=== PATIENT | female | born 1970 | race Caucasian/White ===

== ENCOUNTER 2019-09-01 20:08 | Inpatient (IN) ==
[2019-09-01] MEDS ORDERED: LACTATED RINGERS 1,000 ML IV ONE (20:27)
[2019-09-01] MEDS ORDERED: LORazepam 2 MG/ML VIAL IV ONE ×2 (20:27→23:32)
--- NOTE | 2019-09-01 20:29 | Emergency Department Note ---
General Adult HPI - General Chief complaint: Psychiatric Symptoms Stated complaint: confusion Time Seen by Provider: 09/01/19 20:25 Source: EMS Mode of arrival: ambulatory Limitations: no limitations - History of Present Illness HPI Narrative: EMS was called to the patient's home by family because she was acting delirious. She was diagnosed with a UTI yesterday. She cannot give me much of a history right now and is delirious and somewhat acting out violent. She will have to be restrained. - Related Data Home Medications Medication Instructions Recorded Confirmed albuterol sulfate 90 mcg/actuation 90 mcg INHALATION Q4H PRN 03/25/15 08/31/19 aerosol inhaler acetaminophen 325 mg tablet 325 mg PO ONCE PRN tab 04/21/15 08/31/19 ibuprofen 200 mg capsule 200 mg PO QDAY PRN cap 04/21/15 08/31/19 buspirone 7.5 mg tablet 7.5 mg PO QDAY tab 12/31/15 09/01/19 metformin 500 mg tablet 500 mg PO BID 04/11/19 09/01/19 Enbrel 09/01/19 Previous Rx's Medication Instructions Recorded Albuterol Sulfate [Ventolin] 2 puff INH Q4-6HP PRN #1 inhaler 09/14/16 cyclobenzaprine 5 mg tablet See Rx Instructions .ROUTE 05/17/18 .COMPLEX #120 tablet doxycycline hyclate 100 mg tablet 100 mg PO BID #20 tab 04/11/19 baclofen 20 mg tablet 40 mg PO BID #120 tab 07/22/19 etanercept 50 mg/mL (1 mL) See Rx Instructions .ROUTE 07/23/19 subcutaneous pen injector .COMPLEX #4 unknown measurement unit code: not specified cephalexin 500 mg capsule 1,000 mg PO BID #14 cap 08/31/19 ondansetron 4 mg disintegrating 4 mg PO TID-QID PRN #30 tab 08/31/19 tablet Allergies Allergy/AdvReac Type Severity Reaction Status Date / Time Sulfa (Sulfonamide Allergy Unknown Unknown Verified 09/01/19 21:38 Antibiotics) tetanus toxoid, adsorbed Allergy Unknown Unknown Verified 09/01/19 21:38 thimerosal Allergy Unknown Unknown Verified 09/01/19 21:38 nitrofurantoin Allergy Vomiting Verified 09/01/19 21:38 [From Macrobid] INFLUENZA VACCINE Allergy Unknown Unknown Uncoded 08/31/19 15:44 Review of Systems All systems ED: reviewed and negative except as stated. Past Medical History - Past Medical History [facility] Narrative: Medical History (Last Reviewed 08/31/19 @ 16:06 by Marie Danielson PA-C) Polyarthralgia (Acute) Encounter for long-term current use of high risk medication (Acute) Cigarette smoker (Chronic) Long-term use of immunosuppressant medication (Chronic) Rheumatoid arthritis (Acute) Inflammatory arthritis (Chronic) Asthma (Chronic) Obesity (BMI 30.0-34.9) (Chronic) Chronic back pain (Chronic) Fibromyalgia (Acute) Elevated blood pressure (Chronic) Allergic rhinitis (Chronic) Right shoulder pain (Chronic) Right hip pain (Chronic) Cystitis (Resolved) Elevated C-reactive protein (Resolved) Muscle spasm (Resolved) Trochanteric bursitis, right hip (Resolved) UTI (urinary tract infection) (Resolved) Arthralgia of multiple joints (Inactive) Family History (Last Reviewed 08/31/19 @ 16:06 by Marie Danielson PA-C) Brother Diabetes mellitus, type 2 Father Diabetes mellitus, type 2 Valvular heart disease Father No problems noted. Sister Heart disease Medical history: Reports: asthma, COPD, hypertension, obesity, other. Denies: CAD (coronary artery disease), CVA, DVT, DM, hypothyroidism, myocardial infarction, pulmonary embolus, TIA Psychiatric history: Reports: anxiety. 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 Surgical history ED: Reports: orthopedic, other (Several toe surgeries and hammertoe repair.), other (5 ectopic pregnancies.) - Social History smoking status: Current every day smoker Alcohol use: Reports: None Drug use: Reports: none, marijuana (Topical) Physical Exam Limitations: no limitations General appearance: anxious, appears intoxicated Head: atraumatic, normocephalic Eye: Present: conjunctival injection ENT: Present: normal exam Neck: Present: normal inspection Chest: Present: normal inspection Respiratory: Present: normal lung sounds bilaterally Cardiovascular: Present: regular rate, normal rhythm, normal heart sounds Abdominal: Present: soft. Absent: distention, tenderness Course Vital Signs Temperature 98.0 F 09/01/19 20:10 Pulse Rate 132 H 09/01/19 20:10 Respiratory Rate 24 H 09/01/19 20:10 Blood Pressure 180/110 09/01/19 20:10 Pulse Oximetry (%) 97 09/01/19 20:10 Temperature 100.7 F H 09/02/19 04:16 Pulse Rate 122 H 09/02/19 04:16 Respiratory Rate 28 H 09/02/19 04:16 Blood Pressure 100/72 09/02/19 04:16 Pulse Oximetry (%) 97 09/02/19 04:16 Medical Decision Making - MDM Narrative Medical decision making narrative: Lab work was consistent with sepsis and CT scan was suggestive of pyelonephritis bilaterally with left worse than right. This patient continued to act out and required restraints and Ativan as well as some Haldol to keep her controlled. We did do cultures and gave her Levaquin Zosyn and vancomycin. She will be admitted to the ICU by Dr. Johnosn. - Lab Data Lab results reviewed: Yes I reviewed the patient's lab results. Result diagrams: 09/01/19 20:32 09/01/19 20:32 Lab Results 09/01/19 09/01/19 09/01/19 Range/Units 20:32 20:32 20:32 WBC 22.9 H (4.50-11.00) K/mcL RBC 5.18 (3.59-5.38) M/mcL Hgb 16.0 H (11.2-15.7) g/dL Hct 46.0 H (34.1-44.9) % MCV 88.8 (80.0-100.0) fL MCH 30.9 (26.0-34.0) pg MCHC 34.8 (31.0-36.0) g/dL RDW 13.2 (11.5-14.5) % Plt Count 302 (140-440) K/mcL MPV 10.3 (7.4-10.4) fL Gran % 87.3 H (38.0-78.0) % Lymph % (Auto) 5.5 L (15.5-49.0) % Alexander % (Auto) 6.9 (1.0-12.0) % Eos % (Auto) 0 (0.0-7.0) % Baso % (Auto) 0.3 (0.0-2.0) % Gran # 19.97 H (1.80-8.00) K/mcL Lymph # (Auto) 1.26 L (1.50-4.80) K/mcL Alexander # (Auto) 1.57 H (0.10-0.90) K/mcL Eos # (Auto) 0.01 (0.00-0.70) K/mcL Baso # (Auto) 0.06 (0.00-0.30) K/mcL Differential Comment VBG Lactic Acid 3.4 H (0.5-2.0) mmol/L Sodium 135 (133-145) mmol/L Potassium 3.7 (3.3-5.1) mmol/L Chloride 95 L (96-108) mmol/L Carbon Dioxide 20 L (22-30) mmol/L Anion Gap 20.0 H (8-16) BUN 34 H (6-20) mg/dl Creatinine 2.0 H (0.6-1.1) mg/dl GFR Calculation 29 Glucose 114 H (70-105) mg/dL Calcium 9.5 (8.6-10.4) mg/dl Total Bilirubin 0.3 (0.0-1.0) mg/dL AST 46 H (0-37) U/l ALT 49 H (0-40) U/l Alkaline Phosphatase 137 H (39-117) U/L Total Protein 7.4 (5.9-8.4) gm/dL Albumin 3.8 (3.2-5.2) gm/dL Globulin 3.6 (2.2-3.7) gm/dL Albumin/Globulin Ratio 1.1 (1.0-2.3) Urine Color Urine Appearance Urine pH (5.0-9.0) Ur Specific Irving (1.000-1.035) Urine Protein (NEG) mg/dL Urine Glucose (UA) (NEG) mg/dL Urine Ketones (NEG) mg/dL Urine Occult Blood (<0.03) mg/dL Urine Nitrate (NEG) Urine Bilirubin (NEG) mg/dL Urine Urobilinogen (NEG) mg/dL Ur Leukocyte Esterase (NEG) /uL Urine RBC (0-1) /hpf Urine WBC (0-4) /hpf Ur Squamous Epith Cells (0-4) /hpf Amorphous Crystals (0) /hpf Urine Bacteria (0) /hpf Hyaline Casts (0-2) /lpf Urine Mucus (0) /hpf Ur Culture Indicated? Urine Opiates Screen (NONDETECTED) Ur Opiates Confirm Ur Oxycodone Screen (NONDETECTED) Urine Methadone Screen (NONDETECTED) Ur Methadone Confirm Ur Barbiturates Screen (NONDETECTED) Ur Barbiturate Confirm Ur Phencyclidine Scrn (NONDETECTED) Urine PCP Confirm Ur Amphetamines Screen (NONDETECTED) U Amphetamines Confirm U Benzodiazepines Scrn (NONDETECTED) U Benzodiazepine Confm Urine Cocaine Screen (NONDETECTED) Urine Cocaine Confirm U Cannabinoids Confirm U Marijuana (THC) Screen (NONDETECTED) 09/01/19 09/01/19 Range/Units 21:25 21:25 WBC (4.50-11.00) K/mcL RBC (3.59-5.38) M/mcL Hgb (11.2-15.7) g/dL Hct (34.1-44.9) % MCV (80.0-100.0) fL MCH (26.0-34.0) pg MCHC (31.0-36.0) g/dL RDW (11.5-14.5) % Plt Count (140-440) K/mcL MPV (7.4-10.4) fL Gran % (38.0-78.0) % Lymph % (Auto) (15.5-49.0) % Alexander % (Auto) (1.0-12.0) % Eos % (Auto) (0.0-7.0) % Baso % (Auto) (0.0-2.0) % Gran # (1.80-8.00) K/mcL Lymph # (Auto) (1.50-4.80) K/mcL Alexander # (Auto) (0.10-0.90) K/mcL Eos # (Auto) (0.00-0.70) K/mcL Baso # (Auto) (0.00-0.30) K/mcL Differential Comment VBG Lactic Acid (0.5-2.0) mmol/L Sodium (133-145) mmol/L Potassium (3.3-5.1) mmol/L Chloride (96-108) mmol/L Carbon Dioxide (22-30) mmol/L Anion Gap (8-16) BUN (6-20) mg/dl Creatinine (0.6-1.1) mg/dl GFR Calculation Glucose (70-105) mg/dL Calcium (8.6-10.4) mg/dl Total Bilirubin (0.0-1.0) mg/dL AST (0-37) U/l ALT (0-40) U/l Alkaline Phosphatase (39-117) U/L Total Protein (5.9-8.4) gm/dL Albumin (3.2-5.2) gm/dL Globulin (2.2-3.7) gm/dL Albumin/Globulin Ratio (1.0-2.3) Urine Color Yellow Urine Appearance Cloudy Urine pH 5.0 (5.0-9.0) Ur Specific Irving 1.020 (1.000-1.035) Urine Protein 100 A (NEG) mg/dL Urine Glucose (UA) Negative (NEG) mg/dL Urine Ketones 5/tr A (NEG) mg/dL Urine Occult Blood >=1.0 A (<0.03) mg/dL Urine Nitrate Neg (NEG) Urine Bilirubin Neg (NEG) mg/dL Urine Urobilinogen Neg (NEG) mg/dL Ur Leukocyte Esterase 25 A (NEG) /uL Urine RBC 177 H (0-1) /hpf Urine WBC 28 H (0-4) /hpf Ur Squamous Epith Cells 0 (0-4) /hpf Amorphous Crystals Few A (0) /hpf Urine Bacteria 0 (0) /hpf Hyaline Casts 12 H (0-2) /lpf Urine Mucus Few (0) /hpf Ur Culture Indicated? Yes Urine Opiates Screen None detected (NONDETECTED) Ur Opiates Confirm Not Reportable Ur Oxycodone Screen None detected (NONDETECTED) Urine Methadone Screen None detected (NONDETECTED) Ur Methadone Confirm Not Reportable Ur Barbiturates Screen None detected (NONDETECTED) Ur Barbiturate Confirm Not Reportable Ur Phencyclidine Scrn None detected (NONDETECTED) Urine PCP Confirm Not Reportable Ur Amphetamines Screen None detected (NONDETECTED) U Amphetamines Confirm Not Reportable U Benzodiazepines Scrn None detected (NONDETECTED) U Benzodiazepine Confm Not Reportable Urine Cocaine Screen None detected (NONDETECTED) Urine Cocaine Confirm Not Reportable U Cannabinoids Confirm Not Reportable U Marijuana (THC) Screen Suspect positive A (NONDETECTED) - Radiology Data Radiology results reviewed: Yes I reviewed the patient's radiology results. Disposition Pt seen by BUSINESS IMPROVEMENT MANAGER/PA only: No Clinical Impression: Pyelonephritis Disposition: Xfer As Inpt ([facility]) Condition: Fair Referrals: No,PCP [Primary Care Provider] - Time of Disposition: 06:33
[2019-09-01 21:21] LABS: Basophils # (Auto) 0.06 K/mcL (0.00-0.30); Basophils % (Auto) 0.3 % (0.0-2.0); Eosinophils # (Auto) 0.01 K/mcL (0.00-0.70); Eosinophils % (Auto) 0 % (0.0-7.0); Granulocytes % (Auto) 87.3 % (38.0-78.0); Lymphocytes # (Auto) 1.26 K/mcL (1.50-4.80); Lymphocytes % (Auto) 5.5 % (15.5-49.0); Mean Cell Volume 88.8 fL (80.0-100.0); Mean Corpuscular HGB Conc 34.8 g/dL (31.0-36.0); Mean Platelet Volume 10.3 fL (7.4-10.4); Monocytes # (Auto) 1.57 K/mcL (0.10-0.90); Monocytes % (Auto) 6.9 % (1.0-12.0); Platelet Count 302 K/mcL (140-440); RBC 5.18 M/mcL (3.59-5.38); Red Cell Distribution Width 13.2 % (11.5-14.5); WBC 22.9 K/mcL (4.50-11.00)
[2019-09-01] MEDS ORDERED: LEVOFLOXACIN 750 MG/150 ML BAG IV ONE (21:27)
[2019-09-01 21:30] LABS: ALT/SGPT 49 U/l (0-40); AST/SGOT 46 U/l (0-37); Albumin 3.8 gm/dL (3.2-5.2); Albumin/Globulin Ratio 1.1 (1.0-2.3); Alkaline Phosphatase 137 U/L (39-117); Bilirubin,Total 0.3 mg/dL (0.0-1.0); Blood Urea Nitrogen 34 mg/dl (6-20); Calcium 9.5 mg/dl (8.6-10.4); Carbon Dioxide 20 mmol/L (22-30); Globulin 3.6 gm/dL (2.2-3.7); Glomerular Filtration Rate 29; Glucose 114 mg/dL (70-105)
[2019-09-01 21:32] LABS: Chloride 95 mmol/L (96-108)
[2019-09-01] MEDS ORDERED: 0.9 % SODIUM CHLORIDE 1,000 ML IV ONE (21:55)
[2019-09-01 22:06] LABS: Amphetamine Screen,Urine NONE DETECTED (NONDETECTED); Barbiturate Screen,Urine NONE DETECTED (NONDETECTED); Benzodiazepines Screen,Urine NONE DETECTED (NONDETECTED); Cannabinoid Screen,Urine SUSPECT POSITIVE (NONDETECTED); Cocaine Screen,Urine NONE DETECTED (NONDETECTED); Opiate Screen,Urine NONE DETECTED (NONDETECTED); Oxycodone, Urine Screen NONE DETECTED (NONDETECTED); Phencyclidine Screen,Urine NONE DETECTED (NONDETECTED)
[2019-09-01 22:30] LABS: Appearance,Urine CLOUDY; Bacteria,Urine 0 /hpf (0); Bilirubin,Urine NEG (NEG); Color,Urine YELLOW; Culture Indicated,Urine YES; Glucose,Urine (UA) NEGATIVE (NEG); Ketones,Urine 5/TR mg/dL (NEG); Leukocyte Esterase,Urine 25 /uL (NEG); Mucus,Urine FEW /hpf (0); Nitrate,Urine NEG (NEG); Protein,Urine 100 mg/dL (NEG); Urine Amorphous Crystals FEW /hpf (0); Urine Blood >=1.0 mg/dL (<0.03); Urine Hyaline Cast 12 /lpf (0-2); Urine RBC 177 /hpf (0-1); Urine Squamous Epithelial Cell 0 /hpf (0-4); Urine WBC 28 /hpf (0-4); Urobilinogen,Urine NEG (NEG)
[2019-09-01] MEDS ORDERED: 0.9 % SODIUM CHLORIDE 1,000 ML IV SCH (23:00)
[2019-09-02] MEDS: LORazepam 2 MG/ML VIAL IV PRN ×3 (01:16→05:55)
[2019-09-02] MEDS ORDERED: ACETAMINOPHEN 650 MG SUPP.RECT PR ONE (01:43)
[2019-09-02] MEDS ORDERED: fentaNYL 100 MCG/2 ML VIAL IV ONE ×4 (01:49→10:20)
[2019-09-02] MEDS ORDERED: HALOPERIDOL LACTATE 5 MG/ML VIAL IM ONE (02:05)
[2019-09-02] MEDS ORDERED: VANCOMYCIN 1,000 MG in 0.9 % SODIUM CHLORIDE 250 ML IV ONE (02:29)
[2019-09-02] MEDS ORDERED: PIPERACILLIN SODIUM/TAZOBACTAM 3.375 GM in DEXTROSE 5% IN WATER 50 ML IV ONE (02:29)
[2019-09-02] MEDS ORDERED: LORazepam 2 MG/ML VIAL IV ONE (03:44)
[2019-09-02] MEDS ORDERED: LACTATED RINGERS 1,000 ML IV SCH (05:00)
--- NOTE | 2019-09-02 07:12 | Internal Med History&Physical ---
Medical - H&P: [facility] Patient information: Note initiated : 09/02/19 at 7:10 am Service Date, if different from initiated Date: [] Patient: Sun Cohn a 49 y/o F admitted on 09/02/19 for confusion. Chief Complaint: [] Chief complaint: Acting confused History of present illness: Ms. Cohn is a 49 year old F with known history of DM type II, inflammatory polyarthritis on Enbrel and Etanercept managed by fire pilot. She was brought into the ER by her family after she was noted to be increasingly confused and violent along with fever and lower abdominal/back pain. Symptoms started roughly day and a half prior to presentation and has worsened concerning family. Initial work-up in the ER was consistent with severe sepsis with endorgan dysfunction including her acute renal failure/white count 23,000 with bandemia/elevated lactate/tachycardia, tachypnea and fever. Patient was promptly started antibiotics after cultures were drawn. COVID-19 test was performed. Due to patient's extremely anxious and agitated state she was administered 10 mg Haldol. Hospital service was consulted At the time of evaluation no family members are present. Patient is under the effect of antipsychotic unable to provide any history. GCS 6. Most of the history is obtained from review of medical records and from ER physician. Patient remains tachycardic tachypneic and requiring 2 L oxygen. Lowery started draining clear urine. Review of systems Attempted but could not performed. Medical - H&P: H Medical history: Polyarthralgia (Acute) Encounter for long-term current use of high risk medication (Acute) Cigarette smoker (Chronic) Long-term use of immunosuppressant medication (Chronic) Rheumatoid arthritis (Acute) Inflammatory arthritis (Chronic) Asthma (Chronic) Obesity (BMI 30.0-34.9) (Chronic) Chronic back pain (Chronic) Fibromyalgia (Acute) Elevated blood pressure (Chronic) Allergic rhinitis (Chronic) Right shoulder pain (Chronic) Right hip pain (Chronic) Cystitis (Resolved) Elevated C-reactive protein (Resolved) Muscle spasm (Resolved) Trochanteric bursitis, right hip (Resolved) UTI (urinary tract infection) (Resolved) Arthralgia of multiple joints (Inactive) Family History Brother Diabetes mellitus, type 2 Father Diabetes mellitus, type 2 Valvular heart disease Father No problems noted. Sister Heart disease Social History household members: spouse marital status: smoking status: Current every day smoker tobacco type: cigarettes per day: 20 alcohol intake frequency: holiday/special occasion only substance use type: does not use Medical - H&P: Meds Home Medications Medication Instructions Recorded Confirmed Type albuterol sulfate 90 mcg/actuation 90 mcg INHALATION Q4H PRN 03/25/15 08/31/19 History aerosol inhaler acetaminophen 325 mg tablet 325 mg PO ONCE PRN tab 04/21/15 08/31/19 History ibuprofen 200 mg capsule 200 mg PO QDAY PRN cap 04/21/15 08/31/19 History buspirone 7.5 mg tablet 7.5 mg PO QDAY tab 12/31/15 09/01/19 History Albuterol Sulfate [Ventolin] 2 puff INH Q4-6HP PRN #1 inhaler 09/14/16 09/01/19 Rx cyclobenzaprine 5 mg tablet See Rx Instructions .ROUTE 05/17/18 09/01/19 Rx .COMPLEX #120 tablet doxycycline hyclate 100 mg tablet 100 mg PO BID #20 tab 04/11/19 08/31/19 Rx metformin 500 mg tablet 500 mg PO BID 04/11/19 09/02/19 History baclofen 20 mg tablet 40 mg PO BID #120 tab 07/22/19 09/02/19 Rx etanercept 50 mg/mL (1 mL) See Rx Instructions .ROUTE 07/23/19 08/31/19 Rx subcutaneous pen injector .COMPLEX #4 unknown measurement unit code: not specified cephalexin 500 mg capsule 1,000 mg PO BID #14 cap 08/31/19 09/01/19 Rx ondansetron 4 mg disintegrating 4 mg PO TID-QID PRN #30 tab 08/31/19 09/01/19 Rx tablet Enbrel 09/01/19 History Acyclovir [Zovirax] 800 mg PO DAILY 09/02/19 09/02/19 History Cephalexin [Keflex] 250 mg PO BID 09/02/19 09/02/19 History Lisinopril [Zestril] 1 tab PO DAILY 09/02/19 09/02/19 History Meloxicam [Mobic] 7.5 mg PO BID PRN 09/02/19 09/02/19 History Pravastatin [Pravachol] 1 tab PO QHS 09/02/19 09/02/19 History Allergies Allergy/AdvReac Type Severity Reaction Status Date / Time Sulfa (Sulfonamide Allergy Unknown Unknown Verified 09/01/19 21:38 Antibiotics) tetanus toxoid, adsorbed Allergy Unknown Unknown Verified 09/01/19 21:38 thimerosal Allergy Unknown Unknown Verified 09/01/19 21:38 nitrofurantoin AdvReac Mild Vomiting Verified 09/02/19 08:17 [From Macrobid] INFLUENZA VACCINE Allergy Unknown Unknown Uncoded 08/31/19 15:44 Medical - H&P: Exam - Constitutional Vitals: Temp Pulse Resp BP Pulse Ox 99.5 F H 120 H 30 H 103/72 96 09/02/19 06:47 09/02/19 06:47 09/02/19 06:47 09/02/19 06:46 09/02/19 06:47 General appearance: moderate distress (Agitated confused) Exam: Head normocephalic Oral cavity dry No ear nose discharge Eye movements no nystagmus symmetric Neck no lymphadenopathy S1-S2 tachycardia Tachypnea noted Abdomen soft nontender lower extremity no cyanosis clubbing rash or joint swelling Skin no suspicious lesion psych delirious agitated Neuro could not be performed, GCS 6 Medical - H&P: Reslt - Labs CBC & Chem 7: 09/01/19 20:32 09/01/19 20:32 Labs: Short CBC 09/01/19 Range/Units 20:32 WBC 22.9 H (4.50-11.00) K/mcL Hgb 16.0 H (11.2-15.7) g/dL Hct 46.0 H (34.1-44.9) % Plt Count 302 (140-440) K/mcL BMP 09/01/19 20:32 Sodium 135 Potassium 3.7 Chloride 95 L Carbon Dioxide 20 L BUN 34 H Creatinine 2.0 H Glucose 114 H Calcium 9.5 Liver Function 09/01/19 Range/Units 20:32 Total Bilirubin 0.3 (0.0-1.0) mg/dL AST 46 H (0-37) U/l ALT 49 H (0-40) U/l Alkaline Phosphatase 137 H (39-117) U/L Albumin 3.8 (3.2-5.2) gm/dL Urine 09/01/19 Range/Units 21:25 Urine Color Yellow Urine Appearance Cloudy Urine pH 5.0 (5.0-9.0) Ur Specific Bode[place] 1.020 (1.000-1.035) Urine Protein 100 A (NEG) mg/dL Urine Glucose (UA) Negative (NEG) mg/dL Medical - H&P: A/P (1) Severe sepsis Current visit: Yes Status: Acute * Severe sepsis secondary to bilateral pyelonephritis. White count 23,000. Multiple endorgan dysfunction including acute change mental status/acute kidney injury/elevated. Start pressors if systolics downtrending * Bilateral pyonephritis-initiate broad antibiotic coverage. De-escalate based on sensitivities * Acute renal failure with creatinine 2, baseline 0.8. * Acute change in mental status-likely sepsis endorgan dysfunction however rule out encephalitis. Check CSF studies. ID consult. Start acyclovir renal dosing. Intubate if concerns for airway protection * Hypoxic respiratory failure-continue supplemental oxygen. Endorgan dysfunction. Intubate if concern for airway protection * Elevated LFTs with endorgan dysfunction * History immunocompromise state on Enbrel/ Etanercept for underlying inflammatory polyarthritis. * DM type II * Full code * Prophylaxis heparin Plan * ICU admission light of Cache 2 score 18 and multiorgan dysfunction very high risk mortality. * Broad antibiotic coverage * Acyclovir renal dosing * As needed antipsychotics * Vasopressors if indicated * Nephrology consult * ID consult * Lumbar puncture Critical care time spent in excess of 120 minutes in addition to time spent on history and physical.
[2019-09-02] MEDS ORDERED: OLANZapine 10 MG VIAL IM SCH (07:38)
[2019-09-02] MEDS ORDERED: MELATONIN 3 MG TABLET PO PRN (07:38)
[2019-09-02] MEDS ORDERED: VANCOMYCIN PER PHARMACY IV SCH (07:38)
[2019-09-02] MEDS ORDERED: DEXTROSE 31 GM ORAL.SUSP PO PRN (07:38)
[2019-09-02] MEDS ORDERED: DEXTROSE 50% 50 ML VIAL IV PRN (07:38)
[2019-09-02] MEDS ORDERED: POLYETHYLENE GLYCOL 3350 17 GM PACKET PO PRN (07:38)
[2019-09-02] MEDS ORDERED: ONDANSETRON 4 MG/2 ML VIAL IV PRN (07:38)
[2019-09-02] MEDS ORDERED: POTASSIUM CHLORIDE 40 MEQ in DEXTROSE 5% IN WATER 500 ML IV PRN (07:38)
[2019-09-02] MEDS ORDERED: MAGNESIUM SULFATE 2 GM/50 ML BAG IV PRN (07:38)
[2019-09-02] MEDS ORDERED: ALBUTEROL SULFATE 200 PUFF INHALER INH PRN (07:38)
[2019-09-02] MEDS ORDERED: ACETAMINOPHEN 325 MG TABLET PO PRN (07:38)
[2019-09-02] MEDS ORDERED: ONDANSETRON 4 MG ODT TABLET SL PRN (07:38)
[2019-09-02] MEDS ORDERED: OLANZapine 5 MG TABLET PO PRN (07:38)
[2019-09-02] MEDS ORDERED: POTASSIUM CHLORIDE 20 MEQ PACKET PO PRN (07:38)
[2019-09-02] MEDS ORDERED: BISACODYL 10 MG SUPP.RECT PR PRN (07:38)
[2019-09-02] MEDS: INSULIN LISPRO 1 UNIT/0.01 ML UNIT SQ SCH ×3 (08:05→18:01)
[2019-09-02] MEDS: LACTATED RINGERS 1,000 ML IV SCH ×2 (08:05→20:21)
[2019-09-02] MEDS ORDERED: LACTATED RINGERS 1,000 ML IV ONE (08:17)
[2019-09-02] MEDS ORDERED: IPRATROPIUM/ALBUTEROL SULFATE 1 PUFF INHALER INH SCH (09:00)
--- NOTE | 2019-09-02 09:00 | Cat Scan Report ---
CLINICAL INFORMATION: Altered mental status COMPARISON: None. TECHNIQUE: 2.5 mm helical slices were obtained in the skull base to vertex. Following reconstruction, axial reformatted images were reviewed at bone and parenchymal windows. The exam was performed using radiation dose optimization techniques including, but not limited to, automated exposure control, adjustment of the mA and/or kV according to patient size and use of iterative reconstruction technique. FINDINGS: The ventricles, sulci, fissures, and cisterns are normal in size and configuration. No extra-axial fluid collections are identified. The cerebrum, brainstem and cerebellum are unremarkable. There is no evidence of hemorrhage, mass effect, or edema. Bone windows show no osseous abnormality. IMPRESSION: Normal head CT without contrast. Interpreted and Authenticated by: Prakash Vizcarra 09/02/19
[2019-09-02] MEDS: DEXMEDETOMIDINE 400 MCG in PREMIX 1 BAG IV SCH (09:50)
[2019-09-02] MEDS ORDERED: MIDAZOLAM 2 MG/2 ML VIAL IV STA (09:59)
[2019-09-02] MEDS ORDERED: MIDAZOLAM 2 MG/2 ML VIAL ONE ×2 (10:00→10:18)
[2019-09-02] MEDS ORDERED: VANCOMYCIN 500 MG in 0.9 % SODIUM CHLORIDE 100 ML IV SCH (10:00)
[2019-09-02] MEDS ORDERED: MIDAZOLAM 2 MG/2 ML VIAL IV ONE ×2 (10:14→10:18)
[2019-09-02] MEDS ORDERED: HEPARIN/NS 500 ML IV SCH (10:15)
[2019-09-02] MEDS ORDERED: PROPOFOL 100 ML IV SCH (10:15)
[2019-09-02] MEDS ORDERED: ACYCLOVIR SODIUM 500 MG VIAL IV SCH (10:15)
[2019-09-02] MEDS: fentaNYL 100 MCG/2 ML VIAL IV ONE ×2 (10:21→10:30)
[2019-09-02] MEDS ORDERED: KETAMINE 10 MG/ML ML IV ONE (10:35)
[2019-09-02] MEDS: CYANOCOBALAMIN (VITAMIN B-12) 500 MCG TABLET PO SCH ×2 (10:37→20:22)
[2019-09-02] MEDS: busPIRone 15 MG TABLET PO SCH (10:37)
[2019-09-02] MEDS: sitaGLIPtin 100 MG TABLET PO SCH (10:37)
[2019-09-02] MEDS: TIOTROPIUM BROMIDE 18 MCG INHALANT INH SCH (10:37)
[2019-09-02] MEDS: THIAMINE 100 MG TABLET PO SCH (10:37)
[2019-09-02] MEDS: MULTIVIT,THER IRON,CA,FA & MIN 1 TABLET PO SCH (10:37)
[2019-09-02] MEDS: FOLIC ACID 1 MG TABLET PO SCH (10:37)
[2019-09-02] MEDS: BACLOFEN 10 MG TABLET PO SCH ×2 (10:37→20:22)
[2019-09-02] MEDS: DOCUSATE SODIUM 100 MG CAPSULE PO SCH ×2 (10:37→20:22)
[2019-09-02] MEDS ORDERED: PROPOFOL 200 MG/20 ML VIAL IV ONE (10:37)
[2019-09-02] MEDS ORDERED: ROCURONIUM 10 MG/ML ML IV ONE (10:37)
--- NOTE | 2019-09-02 10:48 | Cat Scan Report ---
CLINICAL INFORMATION: Sepsis COMPARISON: Abdomen and pelvic CT TECHNIQUE: Enteric and IV contrast were withheld by referring physician. 0.625 mm helical slices were obtained from the lung apices through the subtrochanteric regions of the femurs. Following reconstruction, 2.5 mm sagittal, coronal and axial reformatted images were processed and reviewed at multiple windows and levels. 7 mm MIP reconstructions were obtained through the lungs to optimize nodule detection.The exam was performed using radiation dose optimization techniques including, but not limited to, automated exposure control, adjustment of the mA and/or kV according to patient size and use of iterative reconstruction technique. FINDINGS: Pulmonary parenchymal windows show scattered small nodules: The largest is 10.5 mm in the anterior segment left upper lobe, image 42. Other nodules include 3.4 mm adjacent to the minor fissure and the right middle lobe on image 57, 5.5 mm in the lateral basilar segment of the left lower lobe image 69, 4.7 mm lateral segment right middle lobe image 5 mm millimeter lateral basilar segment right lower lobe on image 76. There is also vague groundglass airspace disease throughout the dependent lungs most likely atelectasis. No definite infiltrate. The pleural spaces are normal. The mediastinal windows show the is normal in size configuration without calcific plaque in the coronary arteries. The noncontrasted thoracic aorta and pulmonary arteries are normal in contour and caliber. There is no adenopathy in the mediastinal hilar or axillary regions. Esophagus is grossly normal. The thyroid is unremarkable. Abdominal images show the noncontrast gallbladder and bile ducts, liver, left adrenal gland, spleen, pancreas and aorta and the normal in size configuration and attenuation without focal lesion. An 18 mm low-attenuation well-circumscribed nodule, in the right adrenal gland should represent a benign adenoma and is unchanged. The left kidney is mildly enlarged with inhomogeneous attenuation and perinephric inflammation suggesting diffuse nephritis. Similar, although more mild, findings seen in the right kidney. There is no free air, free fluid or adenopathy. Pelvic images show a Lowery catheter within the urinary bladder base with latter decompression no gross bladder abnormality. 6.4 cm well-defined low-attenuation lesion in the anterior uterine fundus which was not seen on CT less than one year ago. Uterus otherwise normal. Both ovaries are unremarkable. Scattered sigmoid diverticuli noted but no evidence of diverticulitis. The remaining colon and appendix, small bowel and stomach are normal. The bone windows show mild widening of the left L4-5 facet indicates atypical degeneration or less likely inflammatory arthritis. Assess progress from previous study. At C6-7 moderate broad disc spur complex results in moderate central canal, severe left and mild right lateral recess /IV foraminal narrowing with impingement of the exiting left C7 nerve root. No focal osseous abnormalities throughout the chest abdomen or pelvis. IMPRESSION: 1. Mildly enlarged inhomogeneous left kidney with perinephric inflammation suggesting pyelonephritis. Similar, yet more mild changes, seen in the right kidney. Consider unilateral pyelonephritis or bilateral nephritis - more severe on the left. 2. 6.4 cm well-circumscribed low-attenuation lesion in the anterior uterine fundal myometrium - not seen on abdomen and pelvic CT just nine months prior. Rapid growth is a congenital for a benign fibroid. Suggest pelvic ultrasound. 3. Scattered pulmonary nodules which are likely benign. Suggest six month follow-up chest CT to ensure stability or involution. 4. 18 mm low-attenuation lesion right adrenal gland stable bowel benign adenoma. Interpreted and Authenticated by: Prakash Vizcarra 09/02/19
[2019-09-02] MEDS: PROPOFOL 1,000 MG in PREMIX 1 BAG IV SCH ×3 (10:57→23:30)
[2019-09-02] MEDS: ACETAMINOPHEN 650 MG/65 ML BOTTLE IV PRN (10:58)
--- NOTE | 2019-09-02 11:26 | XRay Report ---
CLINICAL INFORMATION: ETT Placement COMPARISON: 09/14/2016 FINDINGS: Endotracheal tube is 3 cm above the harlan. Cardiomediastinal silhouette and pulmonary vessels are normal. Moderate patchy left upper and right lower lung infiltrates have developed. No effusion IMPRESSION: Moderate patchy left upper and right lower lung infiltrates - new Endotracheal tip 3 cm above the harlan Moderate patchy left upper and Interpreted and Authenticated by: Prakash Vizcarra 09/02/19
[2019-09-02] MEDS: ACYCLOVIR SODIUM 800 MG in 0.9 % SODIUM CHLORIDE 250 ML IV SCH ×2 (11:39→23:10)
[2019-09-02] MEDS: fentaNYL 2,500 MCG in 0.9 % SODIUM CHLORIDE 200 ML IV SCH (11:39)
[2019-09-02] MEDS ORDERED: PIPERACILLIN SODIUM/TAZOBACTAM 3.375 GM in DEXTROSE 5% IN WATER 50 ML IV SCH (12:00)
[2019-09-02] MEDS ORDERED: PIPERACILLIN SODIUM/TAZOBACTAM 2.25 GM in DEXTROSE 5% IN WATER 50 ML IV SCH (12:00)
--- NOTE | 2019-09-02 12:34 | Internal Med Progress Note ---
Medical - PN: Subj Patient information: Note initiated : 09/02/19 at 12:30 pm Service Date, if different from initiated Date: [] Patient: Sun Cohn a 49 y/o F admitted on 09/02/19 for confusion. Chief Complaint: [] Interval history: Ms. 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 She was brought into the ER by her family after she was noted to be increasingly confused and violent along with fever and lower abdominal/back pain. Symptoms started roughly day and a half prior to presentation and has worsened concerning family. Initial work-up in the ER was consistent with severe sepsis with endorgan dysfunction including her acute renal failure/white count 23,000 with bandemia/elevated lactate/tachycardia, tachypnea and fever. Patient was promptly started antibiotics after cultures were drawn. COVID-19 test was performed. Due to patient's extremely anxious and agitated state she was administered 10 mg Haldol. Hospitalist service was consulted At the time of evaluation no family members are present. Patient is under the effect of antipsychotic unable to provide any history. GCS 6. Most of the his tory is obtained from review of medical records and from ER physician. Patient remains tachycardic tachypneic and requiring 2 L oxygen. Lowery started draining clear urine. Addendum Shortly after admission patient became extremely encephalopathic with fever at 104. High risk airway compromise and subsequently patient was intubated. Initiated on mechanical ventilation per protocol. Central line access secured. Lumbar puncture ordered. ID consulted and recommends acyclovir. Case discussed with patient's HOME on phone. Consented and agreeable to all procedures involved including life-saving measures/ventilation/central line/lumbar puncture. (He was able to provide a detailed history. they have been trying to maintain social distancing have been in a camper for 6 weeks unti l 8 days ago they returned home. Patient was in her baseline state of health until roughly 3 days prior to presentation started experiencing severe nausea followed by vomiting. Symptoms associated with fever, shaking chills and sweats along with lower back and flank pain. With worsening symptoms she presented to the [facility] care where she was started on antibiotic and antiemetics. She was discharged with outpatient antibiotics. Patient however was unable to take antibiotics until yesterday. She only had 1 dose of antibiotic however she became increasingly fatigued confused lethargic and not making sense prompting her to bring to the ER the second time.) Repeat ABGs reviewed pre-intubation/post intubation. On propofol/fentanyl for ICU sedation. Gram-negative bacteremia resulted blood cultures. Venous lactic acid 4.8. Interval chest imaging pending. Patient remains high risk mortality. ID and nephrology on board. - Constitutional Vitals: Vital Signs Temp Pulse Resp BP Pulse Ox 102.8 F H 119 H 18 116/70 100 09/02/19 10:58 09/02/19 08:06 09/02/19 11:46 09/02/19 08:06 09/02/19 11:46 Period Temp Pulse Resp BP Sys/Benitez Pulse Ox Last 24 Hr 95.5 F-102.8 F 111-136 0-35 100-180/60-110 90-100 Intake and Output 09/01/19 09/02/19 09/02/19 21:59 05:59 13:59 Intake Total 3450 8 Output Total 1850 275 Balance 1600 -267 Weight 200 lb 219 lb Intake & Output: Intake & Output 09/01/19 09/02/19 09/02/19 21:59 05:59 13:59 Intake Total 3450 8 Output Total 1850 275 Balance 1600 -267 Weight 200 lb 219 lb Intake: IV 3450 8 Sodium Chloride 0.9% 1,000 ml @ 2000 45 mls/hr IV .[id number] [facility] Rx#: [id number] Precedex 400 Mcg/100 ml 0 Dextrose 400 Mcg In Premix 1 Bag @ 0.2 MCG/KG/HR 4.967 mls/ hr IV .Q20H8M [facility] Rx#:[id number] Lactated Ringers 1,000 ml @ 100 1000 8 mls/hr IV .Q10H [facility] Rx#: [id number] Zosyn 3.375 gm In Dextrose 5% 50 in Water 50 ml @ 100 mls/hr IV ONCE ONE Rx#:[id number] Vancomycin 1,000 mg In Sodium 250 Chloride 0.9% 250 ml @ 250 mls/ hr IV ONCE ONE Rx#:[id number] Output: Urine Catheter Amount 1850 275 Other: Urine Appearance Cloudy Uretheral (Lowery) Clear Urine Color Uretheral (Lowery) Dark Yellow General appearance: morbidly obese Exam: On mechanical ventilation Medical - PN: Obj Da - Labs CBC & Chem 7: 09/01/19 20:32 09/02/19 12:48 Labs: Abnormal Lab Results 09/02/19 09/01/19 09/01/19 06:00 21:25 21:25 WBC Hgb Hct Gran % Lymph % (Auto) Gran # Lymph # (Auto) [place] # (Auto) VBG Lactic Acid 4.8 H* Chloride Carbon Dioxide Anion Gap BUN Creatinine Glucose AST ALT Alkaline Phosphatase Urine Protein 100 A Urine Ketones 5/tr A Urine Occult Blood >=1.0 A Ur Leukocyte Esterase 25 A Urine RBC 177 H Urine WBC 28 H Amorphous Crystals Few A Hyaline Casts 12 H U Marijuana (THC) Screen Suspect positive A 09/01/19 09/01/19 09/01/19 20:32 20:32 20:32 WBC 22.9 H Hgb 16.0 H Hct 46.0 H Gran % 87.3 H Lymph % (Auto) 5.5 L Gran # 19.97 H Lymph # (Auto) 1.26 L [place] # (Auto) 1.57 H VBG Lactic Acid 3.4 H Chloride 95 L Carbon Dioxide 20 L Anion Gap 20.0 H BUN 34 H Creatinine 2.0 H Glucose 114 H AST 46 H ALT 49 H Alkaline Phosphatase 137 H Urine Protein Urine Ketones Urine Occult Blood Ur Leukocyte Esterase Urine RBC Urine WBC Amorphous Crystals Hyaline Casts U Marijuana (THC) Screen Meds: Medications Acetaminophen (Tylenol) 650 mg PO Q4-6HP PRN; Protocol PRN Reason: Per Pain Protocol/Fever > 101 Albuterol Sulfate (Ventolin) 2 puff INH Q4-6HP PRN PRN Reason: Wheezing Baclofen (Lioresal) 40 mg PO BID [facility] Last Admin: 09/02/19 10:37 Dose: Not Given Documented by: Bisacodyl (Dulcolax) 10 mg [place] Q2-3DAYS PRN PRN Reason: Constipation Buspirone HCl (Buspar) 7.5 mg PO QDAY [facility] Last Admin: 09/02/19 10:37 Dose: Not Given Documented by: Chlorhexidine Gluconate (Peridex) 15 ml SWABMOUTH BID [facility] Cyanocobalamin (Vitamin B-12) 1,000 mcg PO BID [facility] Stop: 09/06/19 21:01 Last Admin: 09/02/19 10:37 Dose: Not Given Documented by: Dextrose (Dextrose 50%) 0 ml IV UD PRN PRN Reason: Hypoglycemia Diagnostic Test (Pha) (Accu-Chek) 1 each FS ACHS [facility] Last Admin: 09/02/19 08:05 Dose: 1 each Documented by: Docusate Sodium (Colace) 100 mg PO BID [facility] Last Admin: 09/02/19 10:37 Dose: Not Given Documented by: Folic Acid (Folic Acid) 1 mg PO DAILY [facility] Last Admin: 09/02/19 10:37 Dose: Not Given Documented by: Glucose (Insta-Glucose) 15 gm PO PRN PRN PRN Reason: Hypoglycemia Heparin Sodium (Porcine) (Heparin) 5,000 unit SQ Q12 [facility] Lactated Ringer's (Lactated Ringers) 1,000 mls @ 100 mls/hr IV .Q10H [facility] Stop: 09/03/19 13:37 Last Infusion: 09/02/19 08:10 Dose: 0 mls/hr Documented by: Acetaminophen (Ofirmev) 650 mg in 65 mls @ 130 mls/hr IV Q6HP PRN; Protocol PRN Reason: Per Pain Protocol/Fever > 101 Last Admin: 09/02/19 10:58 Dose: 130 mls/hr Documented by: Magnesium Sulfate (Magnesium Sulfate) 2 gm in 50 mls @ 50 mls/hr IV UD PRN PRN Reason: MG = or < 1.7 Potassium Chloride 40 meq/ (Dextrose) 520 mls @ 130 mls/hr IV UD PRN PRN Reason: K+ = or < 3.5 Levofloxacin (Levaquin) 750 mg in 150 mls @ 100 mls/hr IV Q48H [facility]; Protocol Norepinephrine Bitartrate 16 (mg/ Sodium Chloride) 250 mls @ 9.375 mls/hr IV Q24H [facility]; Protocol Vancomycin HCl 1,000 mg/ (Sodium Chloride) 250 mls @ 250 mls/hr IV Q12H [facility] Dexmedetomidine HCl 400 mcg/ (Premix) 100 mls @ 4.967 mls/hr IV .Q20H8M [facility]; Protocol Last Titration: 09/02/19 10:05 Dose: 0.03 mcg/kg/hr, 0.7 mls/hr Documented by: Fentanyl 2,500 mcg/ Sodium (Chloride) 250 mls @ 2.5 mls/hr IV Q24H [facility]; Protocol Last Admin: 09/02/19 11:39 Dose: 25 mcg/hr, 2.5 mls/hr Documented by: Heparin Sodium/Sodium Chloride (Heparin/Ns) 500 mls @ 0 mls/hr IV .Q0M [facility]; Protocol Acyclovir Sodium 800 mg/ (Sodium Chloride) 250 mls @ 125 mls/hr IV Q12H [facility] Last Admin: 09/02/19 11:39 Dose: 125 mls/hr Documented by: Propofol 1,000 mg/ Premix 100 mls @ 2.98 mls/hr IV .Q24H [facility]; Protocol Last Admin: 09/02/19 10:57 Dose: 5 mcg/kg/min, 2.98 mls/hr Documented by: Piperacillin Sod/Tazobactam (Sod 2.25 gm/ Dextrose) 50 mls @ 100 mls/hr IV Q6H [facility] Insulin Human Lispro (Humalog) 0 unit SQ ACHS [facility]; Protocol Last Admin: 09/02/19 08:05 Dose: Not Given Documented by: Iron Carb/Multivit/Instrument Engineer/Folic Acid (Multivitamin W/Minerals) 1 tab PO DAILY [facility] Last Admin: 09/02/19 10:37 Dose: Not Given Documented by: Melatonin (Melatonin 3mg Tablet) 3 mg PO HSP PRN PRN Reason: Insomnia Olanzapine (Zyprexa) 5 mg IM ONCE [facility] Last Admin: 09/02/19 09:15 Dose: 5 mg Documented by: Olanzapine (Zyprexa) 5 mg PO BIDP PRN PRN Reason: Agitation Ondansetron HCl (Zofran Odt) 4 mg SL Q4-6HP PRN; Protocol PRN Reason: Nausea And Vomiting Ondansetron HCl (Zofran) 4 mg IV Q4-6HP PRN; Protocol PRN Reason: Nausea And Vomiting Polyethylene Glycol (Miralax) 17 gm PO DAILYP PRN PRN Reason: Constipation Potassium Chloride (Klor-Con) 40 meq PO DAILYP PRN PRN Reason: K+ < 3.5 Senna/Docusate Sodium (Senna Plus Tablet) 1 tab PO [facility] Sitagliptin Phosphate (Januvia) 50 mg PO DAILY [facility] Last Admin: 09/02/19 10:37 Dose: Not Given Documented by: Sodium Chloride (Saline Flush) 10 ml IV Q8 [facility] Thiamine HCl (Vitamin B1) 100 mg PO DAILY [facility] Last Admin: 09/02/19 10:37 Dose: Not Given Documented by: Tiotropium Duck (Spiriva) 18 mcg INH DAILY [facility] Last Admin: 09/02/19 10:37 Dose: Not Given Documented by: Vancomycin HCl (Vancomycin Per Pharmacy) 1 order IV UD [facility]; Protocol Medical - PN: A/P - Time Spent With Patient Total time spent is greater than 50% in coordination of care (as documented) at patient's floor/unit and/or counseling patient: Greater than 35 minutes (Critical care time) (1) Severe sepsis Status: Acute Assessment and plan: * Mechanical ventilation for airway protection/hypoxia respiratory failure- continue management per protocol * Acute change in mental status-I probably encephalitis. Await LP studies. On acyclovir per ID . * Severe sepsis secondary to bilateral pyelonephritis. White count 23,000. Multiple endorgan dysfunction including acute change mental status/acute kidney injury/elevated. Start pressors if systolics downtrending * Gram-negative bacteremia secondary to pyelonephritis. * Bilateral pyonephritis-continue broad antibiotics * Acute renal failure with creatinine 2, baseline 0.8. Nephrology on board * Elevated LFTs with endorgan dysfunction * History immunocompromise state on Enbrel/ Etanercept for underlying inflammatory polyarthritis. * DM type II-continue basal panel insulin * Full code * Prophylaxis heparin Plan * Continue mechanical ventilation protocol * Serial chest imaging/blood gas/SPO2/lactic acid trending * Crystalloid challenge * Broad antibiotic coverage * Continue acyclovir renal dosing * Vasopressors to keep map at goal * Nephrology and ID consultations * Lumbar puncture Current Visit: Yes
--- NOTE | 2019-09-02 13:00 | Infectious Disease Consult ---
History of Present Illness Patient information: Note initiated : 09/02/19 at 12:56 pm Service Date, if different from initiated Date: [] Patient: Sun Cohn 49 y/o F admitted on 09/02/19 for confusion. Chief Complaint: [] Consult date: 09/02/19 Requesting Physician: Rishi Wheeler Reason for Consult: Gram-negative raheem bacteremia Chief complaint: Confusion History of present illness: HPI obtained from chart review as patient unable to give any history given her altered mental status. 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 Symptoms started roughly day and a half prior to presentation and had worsened. Of note patient was recently seen at [facility] for UTI and prescribed oral Keflex which she did not start until yesterday. Initial work-up in the ER was consistent with severe sepsis with endorgan dysfunction including her acute renal failure/white count 23,000 with bandemia/elevated lactate [4.8]/tachycardia, tachypnea and fever. Patient was promptly started IV Vanco, IV Zosyn and IV Levaquin after blood cultures cultures were drawn. COVID-19 test was performed. Due to patient's extremely anxious and agitated state she was administered 10 mg Haldol. Patient remains tachycardic tachypneic and requiring 2 L oxygen. Lowery started draining clear urine. Shortly after admission patient became extremely encephalopathic with fever at 104. High risk airway compromise and subsequently patient was intubated. Initiated on mechanical ventilation per protocol. Central line access secured. Lumbar puncture ordered. ID consulted and recommends acyclovir. Patient's on phone: they have been trying to maintain social distancing have been in a camper for 6 weeks until 8 days ago they returned home. Patient was in her baseline state of health until roughly 3 days prior to presentation started experiencing severe nausea followed by vomiting. Symptoms associated with fever, shaking chills and sweats along with lower back and flank pain. With worsening symptoms she presented to the [facility] where she was started on antibiotic and antiemetics. She was discharged with outpatient antibiotics. Patient however was unable to take antibiotics until yesterday. She only had 1 dose of antibiotic however she became increasingly fatigued confused lethargic and not making sense prompting her to bring to the ER the second time.) At time of visit, patient was extremely agitated needing at least 4 people to hold her and prevent her from getting out of the bed. She is given about 2 mg of Versed per my orders and subsequently Dr. Wheeler was notified with plans for airway protection. Repeat ABGs reviewed pre-intubation/post intubation. On propofol/fentanyl for ICU sedation. Blood cultures obtained in the ED last night showed gram-negative bacteremia with, very thin confirming it to be E. c polo without any specific resistance genes. Review of Systems ROS unobtainable: due to mental status (Patient is very agitated and unable to give history or review of systems) Medications and Allergies Home Medications Medication Instructions Recorded Confirmed Type albuterol sulfate 90 mcg/actuation 90 mcg INHALATION Q4H PRN 03/25/15 08/31/19 History aerosol inhaler acetaminophen 325 mg tablet 325 mg PO ONCE PRN tab 04/21/15 08/31/19 History ibuprofen 200 mg capsule 200 mg PO QDAY PRN cap 04/21/15 08/31/19 History buspirone 7.5 mg tablet 7.5 mg PO QDAY tab 12/31/15 09/01/19 History Albuterol Sulfate [Ventolin] 2 puff INH Q4-6HP PRN #1 inhaler 09/14/16 09/01/19 Rx cyclobenzaprine 5 mg tablet See Rx Instructions .ROUTE 05/17/18 09/01/19 Rx .COMPLEX #120 tablet doxycycline hyclate 100 mg tablet 100 mg PO BID #20 tab 04/11/19 08/31/19 Rx metformin 500 mg tablet 500 mg PO BID 04/11/19 09/02/19 History baclofen 20 mg tablet 40 mg PO BID #120 tab 07/22/19 09/02/19 Rx etanercept 50 mg/mL (1 mL) See Rx Instructions .ROUTE 07/23/19 08/31/19 Rx subcutaneous pen injector .COMPLEX #4 unknown measurement unit code: not specified cephalexin 500 mg capsule 1,000 mg PO BID #14 cap 08/31/19 09/01/19 Rx ondansetron 4 mg disintegrating 4 mg PO TID-QID PRN #30 tab 08/31/19 09/01/19 Rx tablet Enbrel 09/01/19 History Acyclovir [Zovirax] 800 mg PO DAILY 09/02/19 09/02/19 History Cephalexin [Keflex] 250 mg PO BID 09/02/19 09/02/19 History Lisinopril [Zestril] 1 tab PO DAILY 09/02/19 09/02/19 History Meloxicam [Mobic] 7.5 mg PO BID PRN 09/02/19 09/02/19 History Pravastatin [Pravachol] 1 tab PO QHS 09/02/19 09/02/19 History Allergies Allergy/AdvReac Type Severity Reaction Status Date / Time Sulfa (Sulfonamide Allergy Unknown Unknown Verified 09/01/19 21:38 Antibiotics) tetanus toxoid, adsorbed Allergy Unknown Unknown Verified 09/01/19 21:38 thimerosal Allergy Unknown Unknown Verified 09/01/19 21:38 nitrofurantoin AdvReac Mild Vomiting Verified 09/02/19 08:17 [From Macrobid] INFLUENZA VACCINE Allergy Unknown Unknown Uncoded 08/31/19 15:44 Physical Examination Vital signs: Temp Pulse Resp BP Pulse Ox 39.3 C H 119 H 18 116/70 100 09/02/19 10:58 09/02/19 08:06 09/02/19 11:46 09/02/19 08:06 09/02/19 11:46 General appearance: agitated Eyes pulmonary: nonicteric, other (Pupils sluggishly reactive to light, 2 to 3 mm bilaterally) ENT: oropharynx dry Neck: supple, other (No neck stiffness as patient able to flex and extend the neck during agitation by herself) Effort: mildly labored Auscultation: bilateral: clear Cardiovascular: regular rate and rhythm Gastrointestinal: normoactive bowel sounds, soft, non-tender Integumentary: rash (Distributed in the upper torso mainly around the neck and face, macular, no hives or blisters) unable to assess due to mental status, other (Able to move all 4 limbs) Results - Laboratory Findings CBC and BMP: 09/01/19 20:32 09/02/19 12:48 Abnormal lab findings: Abnormal Labs 09/01/19 09/01/19 09/01/19 20:32 20:32 20:32 WBC 22.9 H Hgb 16.0 H Hct 46.0 H Gran % 87.3 H Lymph % (Auto) 5.5 L Gran # 19.97 H Lymph # (Auto) 1.26 L [place] # (Auto) 1.57 H VBG Lactic Acid 3.4 H Chloride 95 L Carbon Dioxide 20 L Anion Gap 20.0 H BUN 34 H Creatinine 2.0 H Glucose 114 H AST 46 H ALT 49 H Alkaline Phosphatase 137 H Urine Protein Urine Ketones Urine Occult Blood Ur Leukocyte Esterase Urine RBC Urine WBC Amorphous Crystals Hyaline Casts U Marijuana (THC) Screen 09/01/19 09/01/19 09/02/19 21:25 21:25 06:00 WBC Hgb Hct Gran % Lymph % (Auto) Gran # Lymph # (Auto) [place] # (Auto) VBG Lactic Acid 4.8 H* Chloride Carbon Dioxide Anion Gap BUN Creatinine Glucose AST ALT Alkaline Phosphatase Urine Protein 100 A Urine Ketones 5/tr A Urine Occult Blood >=1.0 A Ur Leukocyte Esterase 25 A Urine RBC 177 H Urine WBC 28 H Amorphous Crystals Few A Hyaline Casts 12 H U Marijuana (THC) Screen Suspect positive A Microbiology: Microbiology 09/01/19 22:00 Blood Blood Culture - Preliminary Gram negative bacillus 09/02/19 07:30 Nose - Both Right and Left MRSA (PCR) - Final 09/01/19 21:20 Blood Blood Culture - Preliminary Gram negative bacillus Assessment and Plan - Narrative A/P Narrative: A: 1. E coli bacteremia with pyelonephritis complicated by sepsis: no resistant genes detected (CTX-M, KPC ) - 2/ blood Cx - source: urine as patient has pyelonephritis 2. COVID 19 testing: meets criteria - MEDICAL GENETICIST swab sent 3. Altered mental status: sec to sepsis. CT head neg for any SHANELL, hydrocephalus - LP warranted - will consider viral etiology such as HSV as well, although less likely; since sepsis seems like a more common cause in this patient's presentation 4. Immunosuppresion: Hx on undifferentiated arthritis, on Enbrel per Rheumatology - serum quantiferon neg in 2017 - Hep B surface Ag, Hep B core Ab neg - besides being on biologics no other risk factors for PJP such as steroids, age >65, co-existing lung disease 5. SHANTELL: CR 2, CrCl 53/min per CG formula - sec to sepsis Recommendations: - Stop IV Vanc and IV Levofloxacin - Continue IV Zosyn at 3.375 gm q6 hrs for now. will deescalate in 1-2 days based on micro data - repeat blood Cx every other day until negative - send CSF for cryptococcal Ag, HSV PCR in addition to routine studies: cell count, Glu, protein, GS and C/S - Continue IV Acyclovir at 10 mg/kg q8 hrs with IV rehydration. will deescalate if needed - await COVID 19 test results will follow Gabe Marsh MD Infectious diseases
--- NOTE | 2019-09-02 13:07 | XRay Report ---
CLINICAL INFORMATION: central line position COMPARISON: 09/02/2019 1100 hours FINDINGS: Left IJ central line tip overlies the SVC right atrial junction. No pneumothorax or other complication. Heart size, mediastinum and pulmonary vessels are normal. Endotracheal tube in stable position 2.3 cm above the harlan.. Moderate consolidated atelectasis have developed in both lower lobes since the x-ray 1.5 hours ago.. Left upper lobe airspace disease has cleared. Small bilateral pleural effusions appreciated IMPRESSION: Moderate consolidated atelectasis developing in both lung bases with small bilateral pleural effusions. Left IJ central line in satisfactory position. Endotracheal tip is 2.3 cm above the harlan Interpreted and Authenticated by: Prakash Vizcarra 09/02/19
--- NOTE | 2019-09-02 13:24 | Emergency Department Note ---
ED Note Addendum Note Addendum: Procedural note: Patient was intubated at the request of the hospitalist, Dr. Johnson. Indications for intubation were signs of encephalitis, high fever and septicemia, respiratory decompensation in the setting of septicemia. After sedation and using paralytic agent rocuronium 100 mg the patient was intubated with a 7 mm endotracheal tube using a glidescope . Uncomplicated endotracheal intubation was achieved on the initial attempt after sedation and using rocuronium as a paralytic agent up. We used 50 mg of propofol along with 100 mg of ketamine for initial sedation. There was no significant desaturation during the procedure and her sats were noted to come up to the and 90s immediately after bag valve respiratory support. Endotracheal tube was secured at 23 mm at the lip line. Follow-up chest x-ray was ordered and per Dr. arzate endotracheal tube placement was adequate. Further medical management per internal medicine team. Noted was taken and during the intubation that she had a lot of erythema in the posterior oropharynx and hypopharynx associated with exudates and moderate erythema without significant edema.
[2019-09-02] MEDS ORDERED: 0.9 % SODIUM CHLORIDE 500 ML IV ONE (13:30)
[2019-09-02] MEDS: NOREPINEPHRINE BITARTRATE 16 MG in 0.9 % SODIUM CHLORIDE 234 ML IV SCH ×2 (13:43→17:09)
[2019-09-02] MEDS: HEPARIN 5,000 UNIT/ML VIAL SQ SCH ×2 (14:09→20:21)
--- NOTE | 2019-09-02 14:14 | XRay Report ---
CLINICAL INFORMATION: ng placement COMPARISON: None. FINDINGS: NG tube overlies the gastric antrum. Stool gas pattern is normal. No free air, soft tissue mass or organomegaly. IMPRESSION: NG tube overlying the gastric antrum. No acute disease Interpreted and Authenticated by: Prakash Vizcarra 09/02/19
[2019-09-02 14:22] LABS: Bilirubin,Direct < 0.2 mg/dL (0.0-0.3)
[2019-09-02 14:31] LABS: ALT/SGPT 39 U/l (0-40); AST/SGOT 47 U/l (0-37); Albumin 2.7 gm/dL (3.2-5.2); Albumin/Globulin Ratio 0.8 (1.0-2.3); Alkaline Phosphatase 109 U/L (39-117); Bilirubin,Total 0.3 mg/dL (0.0-1.0); Blood Urea Nitrogen 25 mg/dl (6-20); Calcium 8.3 mg/dl (8.6-10.4); Carbon Dioxide 17 mmol/L (22-30); Chloride 107 mmol/L (96-108); Globulin 3.6 gm/dL (2.2-3.7); Glomerular Filtration Rate 48; Glucose 128 mg/dL (70-105); Lactate Dehydrogenase 354 U/L (94-250); Phosphorous 3.8 mg/dL (2.7-4.5); Triglycerides 304 mg/dl (<150); Uric Acid 6.7 mg/dL (2.5-8.0)
[2019-09-02 14:41] LABS: Glucose,CSF 71 mg/dL (45-75); Total Protein,CSF 25 mg/dL (15.0-45)
--- NOTE | 2019-09-02 14:55 | Nephrology Consult Note ---
History of Present Illness - Reason for Consult Patient information: Note initiated : 09/02/19 at 2:52 pm Service Date, if different from initiated Date: [] Patient: Sun Cohn 49 y/o F admitted on 09/02/19 for confusion. Chief Complaint: [] Consult date: 09/02/19 Requesting physician: Rishi Wheeler - History of Present Illness History of the present illness, past medical history and other information is obtained from review of chart and discussion with healthcare providers as during my first visit the patient had agitated delirium and during the second visit the patient was intubated, sedated 49-year-old female with T2 DM, inflammatory polyarthritis on immunosuppression, obesity, who was brought to the ED by her family for increasing confusion, violent behavior, fever, lower back and abdominal pain. Initial work-up in the ED was consistent with severe sepsis with endorgan dysfunction including SHANTELL, lactic acidosis, tachycardia, fever, tachypnea. She continued to have agitated delirium. She was intubated on 09/02/2019. Past medical history includes fibromyalgia, polyarthralgia, RA, asthma, DM, UTI Otherwise unable to obtain history, review of systems as patient is intubated and sedated Physical exam HEENT head is normocephalic and atraumatic. Neck no JVD The patient is intubated, orotracheal tube. Respiratory nonlabored respirations, intubated, tidal volume 450, respiratory rate 14, PEEP 5, FiO2 60% Cardiovascular regular rate and rhythm, tachycardic, present peripheral pulses Abdomen obese Extremities no cyanosis, no edema Medications and Allergies Home Medications Medication Instructions Recorded Confirmed Type albuterol sulfate 90 mcg/actuation 90 mcg INHALATION Q4H PRN 03/25/15 08/31/19 History aerosol inhaler acetaminophen 325 mg tablet 325 mg PO ONCE PRN tab 04/21/15 08/31/19 History ibuprofen 200 mg capsule 200 mg PO QDAY PRN cap 04/21/15 08/31/19 History buspirone 7.5 mg tablet 7.5 mg PO QDAY tab 12/31/15 09/01/19 History Albuterol Sulfate [Ventolin] 2 puff INH Q4-6HP PRN #1 inhaler 09/14/16 09/01/19 Rx cyclobenzaprine 5 mg tablet See Rx Instructions .ROUTE 05/17/18 09/01/19 Rx .COMPLEX #120 tablet doxycycline hyclate 100 mg tablet 100 mg PO BID #20 tab 04/11/19 08/31/19 Rx metformin 500 mg tablet 500 mg PO BID 04/11/19 09/02/19 History baclofen 20 mg tablet 40 mg PO BID #120 tab 07/22/19 09/02/19 Rx etanercept 50 mg/mL (1 mL) See Rx Instructions .ROUTE 07/23/19 08/31/19 Rx subcutaneous pen injector .COMPLEX #4 unknown measurement unit code: not specified cephalexin 500 mg capsule 1,000 mg PO BID #14 cap 08/31/19 09/01/19 Rx ondansetron 4 mg disintegrating 4 mg PO TID-QID PRN #30 tab 08/31/19 09/01/19 Rx tablet Enbrel 09/01/19 History Acyclovir [Zovirax] 800 mg PO DAILY 09/02/19 09/02/19 History Cephalexin [Keflex] 250 mg PO BID 09/02/19 09/02/19 History Lisinopril [Zestril] 1 tab PO DAILY 09/02/19 09/02/19 History Meloxicam [Mobic] 7.5 mg PO BID PRN 09/02/19 09/02/19 History Pravastatin [Pravachol] 1 tab PO QHS 09/02/19 09/02/19 History Allergies Allergy/AdvReac Type Severity Reaction Status Date / Time Sulfa (Sulfonamide Allergy Unknown Unknown Verified 09/01/19 21:38 Antibiotics) tetanus toxoid, adsorbed Allergy Unknown Unknown Verified 09/01/19 21:38 thimerosal Allergy Unknown Unknown Verified 09/01/19 21:38 nitrofurantoin AdvReac Mild Vomiting Verified 09/02/19 08:17 [From Macrobid] INFLUENZA VACCINE Allergy Unknown Unknown Uncoded 08/31/19 15:44 Exam - Vital Signs Vital signs: Temp Pulse Resp BP Pulse Ox 35.7 C L 117 H 23 H 93/70 92 09/02/19 14:16 09/02/19 14:16 09/02/19 14:16 09/02/19 14:16 09/02/19 14:16 Results - Lab Results 09/01/19 20:32 09/02/19 12:48 Most recent lab results Calcium 8.3 mg/dl (8.6-10.4) L 09/02/19 12:48 Phosphorus 3.8 mg/dL (2.7-4.5) 09/02/19 12:48 Magnesium 1.9 mg/dL (1.6-2.5) 09/02/19 12:48 Assessment and Plan (1) SHANTELL (acute kidney injury) Status: Acute Priority: Medium - Narrative A/P Narrative: non oliguric. Baseline serum creatinine 0.8 -0.9, EGFR 7627 SCR 2 on presentation, trended down to 1.3 on 09/02/2019. Suspect multifactorial, prerenal component the patient seem to be hemoconcentrated on admission. Also toxic ATN in the setting of sepsis and hemodynamic. The patient was on ibuprofen and meloxicam as needed. 09/01/2019 UA positive RBC 177, positive WBC 28, present hyaline casts. Urine culture pending 09/01/2019 2 out of 2 blood cultures positive for gram-negative bacillus 09/02/2019 CT abdomen and pelvis without contrast mildly enlarged left kidney with perinephric inflammation suggesting pyelonephritis. Similar changes in the right kidney. A 10 mm low-attenuation right adrenal gland adenoma. *Strict I's and O's *Avoid nephrotoxins; avoid magnesium and phosphate-containing bowel regimens, dye *Dose medication for eGFR *Metformin stopped, agree Hemodynamics and volume Serum albumin from 3.8-2.7. Clinically euvolemic to slightly dry. The patient was receiving a bolus of IV fluids at the time of my second visit. Blood pressure was low normal. Pressure support as needed per primary team Acid-base Bicarbonate 17, anion gap 17. pH 7.39, PCO2 31. Lactic acidosis, 3.4 on 09/01/2019, 4.8 on 09/02/2019. Repeat lactic acid pending Hematologic Leukocytosis on 09/01/2019 22.9, greater than 10% bands, in the setting of sepsis/bacteremia. Hemoglobin 16. Bacteremia/sepsis Received vancomycin, levofloxacin and Zosyn. Management per ID and primary team
[2019-09-02] MEDS: 0.9 % SODIUM CHLORIDE 10 ML SYRINGE IV SCH ×2 (15:12→20:22)
[2019-09-02 15:14] LABS: Appearance,CSF CLEAR; Nucleated Cells,CSF 2 /cumm (0-5); Red Blood Cell,CSF 4 /cumm (0-1)
[2019-09-02 15:20] LABS: Appearance,CSF CLEAR; Nucleated Cells,CSF 0 /cumm (0-5); Red Blood Cell,CSF 2 /cumm (0-1)
[2019-09-02] MEDS: PIPERACILLIN SODIUM/TAZOBACTAM 3.375 GM in DEXTROSE 5% IN WATER 50 ML IV SCH (18:23)
[2019-09-02] MEDS: CHLORHEXIDINE GLUCONATE 1 ML ORAL.SOL SWABMOUTH SCH (20:20)
[2019-09-02] MEDS ORDERED: VANCOMYCIN 1,000 MG in 0.9 % SODIUM CHLORIDE 250 ML IV SCH (21:00)
[2019-09-02] MEDS ORDERED: SENNOSIDES/DOCUSATE SODIUM 1 TAB TABLET PO SCH (21:00)
[2019-09-02] MEDS ORDERED: PROPOFOL 0 ML IV ONE (23:19)
[2019-09-03] MEDS ORDERED: MIDAZOLAM 5 MG/5 ML VIAL IV ONE (00:26)
[2019-09-03] MEDS: ACETAMINOPHEN 650 MG/65 ML BOTTLE IV PRN ×2 (00:30→10:09)
[2019-09-03] MEDS ORDERED: MIDAZOLAM 2 MG/2 ML VIAL ONE (00:30)
[2019-09-03] MEDS ORDERED: MIDAZOLAM PF 50 MG in 0.9 % SODIUM CHLORIDE 90 ML IV SCH (01:45)
[2019-09-03] MEDS: PROPOFOL 1,000 MG in PREMIX 1 BAG IV SCH ×2 (04:38→12:28)
[2019-09-03 05:18] LABS: Hemoglobin 11.9 g/dL (11.2-15.7); Mean Cell Volume 90.2 fL (80.0-100.0); Mean Platelet Volume 10.4 fL (7.4-10.4); Platelet Count 201 K/mcL (140-440); RBC 3.88 M/mcL (3.59-5.38); WBC 9.3 K/mcL (4.50-11.00)
[2019-09-03] MEDS: LACTATED RINGERS 1,000 ML IV SCH (05:28)
[2019-09-03] MEDS: PIPERACILLIN SODIUM/TAZOBACTAM 3.375 GM in DEXTROSE 5% IN WATER 50 ML IV SCH ×3 (05:28→12:46)
[2019-09-03] MEDS: 0.9 % SODIUM CHLORIDE 10 ML SYRINGE IV SCH (05:29)
[2019-09-03 05:37] LABS: Bilirubin,Direct < 0.2 mg/dL (0.0-0.3)
[2019-09-03 05:38] LABS: ALT/SGPT 31 U/l (0-40); AST/SGOT 37 U/l (0-37); Albumin 2.1 gm/dL (3.2-5.2); Albumin/Globulin Ratio 0.6 (1.0-2.3); Alkaline Phosphatase 87 U/L (39-117); Bilirubin,Total 0.4 mg/dL (0.0-1.0); Blood Urea Nitrogen 23 mg/dl (6-20); Carbon Dioxide 18 mmol/L (22-30); Chloride 109 mmol/L (96-108); Globulin 3.3 gm/dL (2.2-3.7); Glomerular Filtration Rate 48; Glucose 129 mg/dL (70-105); Lactate Dehydrogenase 313 U/L (94-250); Phosphorous 2.2 mg/dL (2.7-4.5); Triglycerides 363 mg/dl (<150)
[2019-09-03] MEDS: DEXMEDETOMIDINE 400 MCG in PREMIX 1 BAG IV SCH (05:54)
[2019-09-03 05:57] LABS: Band Neutrophils % 12 % (0-10); Eosinophils % (Manual) 1 % (0-7); Lymphocytes % 13 % (15-49); Monocytes % (Manual) 8 % (1-12); Platelet Estimate NORMAL (NORMAL); RBC Morphology NORMAL (NORMAL); Segmented Neutrophils % 66 % (38-78)
[2019-09-03] MEDS: INSULIN LISPRO 1 UNIT/0.01 ML UNIT SQ SCH ×3 (06:58→11:48)
[2019-09-03] MEDS: DOCUSATE SODIUM 100 MG CAPSULE PO SCH (07:51)
[2019-09-03] MEDS: FOLIC ACID 1 MG TABLET PO SCH (07:51)
[2019-09-03] MEDS: busPIRone 15 MG TABLET PO SCH (07:51)
[2019-09-03] MEDS: sitaGLIPtin 100 MG TABLET PO SCH (07:52)
[2019-09-03] MEDS: CYANOCOBALAMIN (VITAMIN B-12) 500 MCG TABLET PO SCH (07:52)
[2019-09-03] MEDS: BACLOFEN 10 MG TABLET PO SCH (07:52)
[2019-09-03] MEDS: MULTIVIT,THER IRON,CA,FA & MIN 1 TABLET PO SCH (07:52)
--- NOTE | 2019-09-03 08:05 | XRay Report ---
CLINICAL INFORMATION: Mechanically Ventilated COMPARISON: 09/02/2019 FINDINGS: Endotracheal tip 3 cm above the harlan. NG tube extends up into the predominantly the gastric body. Left IJ central line tip overlies the SVC right atrial junction. All are in stable position. The heart is normal for technique. Mediastinum and pulmonary vessels unremarkable. Moderate consolidated atelectasis or, less likely, infiltrate both bases with small effusions show slight worsening IMPRESSION: Moderate consolidated atelectasis or, less likely, infiltrate both lung bases with small bilateral effusions - slight worsening. Interpreted and Authenticated by: Prakash Vizcarra 09/03/19
[2019-09-03] MEDS: HEPARIN 5,000 UNIT/ML VIAL SQ SCH (08:21)
[2019-09-03] MEDS: CHLORHEXIDINE GLUCONATE 1 ML ORAL.SOL SWABMOUTH SCH (08:21)
[2019-09-03] MEDS: TIOTROPIUM BROMIDE 18 MCG INHALANT INH SCH (08:22)
[2019-09-03] MEDS: THIAMINE 100 MG TABLET PO SCH (08:22)
[2019-09-03] MEDS ORDERED: LEVOFLOXACIN 750 MG/150 ML BAG IV SCH (09:00)
[2019-09-03] MEDS ORDERED: FUROSEMIDE 40 MG/4 ML VIAL IV ONE (10:02)
--- NOTE | 2019-09-03 10:11 | Procedure Note ---
Procedures - Central Line Placement Left IJ Date of Procedure: 09/03/19 (Telephone consent from ,HOME) Time out performed: Yes Patient placed on monitor/pulse ox: Yes prep: mask, sterile gown, sterile gloves, cap Local anesthesia used: lidocaine 1% Ultrasound used for placement: Yes Central line lumen inserted: quad, 16 cm Post procedure: sutured in place, good blood return, all ports aspirated, flushed, capped, sterile dressing applied Post procedure x-ray: tip of catheter in good position Complications: none
--- NOTE | 2019-09-03 10:13 | Internal Med Progress Note ---
Medical - PN: Subj Patient information: Note initiated : 09/03/19 at 10:11 am Service Date, if different from initiated Date: [] Patient: Sun Cohn a 49 y/o F admitted on 09/02/19 for confusion. Chief Complaint: [] Interval history: Ms. Cohn is a 49 year old F with known history of DM type II, inflammatory poly arthritis on Enbrel and Etanercept managed by auriculotherapist. She was brought into the ER by her family after she was noted to be increasingly confused and violent along with fever and lower abdominal/back pain. Symptoms started roughly day and a half prior to presentation and has worsened concerning family. Initial work-up in the ER was consistent with severe sepsis with endorgan dysfunction including her acute renal failure/white count 23,000 with bandemia/elevated lactate/tachycardia, tachypnea and fever. Patient was promptly started antibiotics after cultures were drawn. COVID-19 test was performed. Due to patient's extremely anxious and agitated state she was administered 10 mg Haldol. Hospitalist service was consulted At the time of evaluation no family members are present. Patient is under the effect of antipsychotic unable to provide any history. GCS 6. Most of the his tory is obtained from review of medical records and from ER physician. Patient remains tachycardic tachypneic and requiring 2 L oxygen. Lowery started draining clear urine. Addendum Shortly after admission patient became extremely encephalopathic with fever at 104. High risk airway compromise and subsequently patient was intubated. Initiated on mechanical ventilation per protocol. Central line access secured. Lumbar puncture ordered. ID consulted and recommends acyclovir. Case discussed with patient's HOME on phone. Consented and agreeable to all procedures involved including life-saving measures/ventilation/central line/lumbar puncture. (He was able to provide a detailed history. they have been trying to maintain social distancing have been in a camper for 6 weeks unti l 8 days ago they returned home. Patient was in her baseline state of health until roughly 3 days prior to presentation started experiencing severe nausea followed by vomiting. Symptoms associated with fever, shaking chills and sweats along with lower back and flank pain. With worsening symptoms she presented to the [facility] care where she was started on antibiotic and antiemetics. She was discharged with outpatient antibiotics. Patient however was unable to take antibiotics until yesterday. She only had 1 dose of antibiotic however she became increasingly fatigued confused lethargic and not making sense prompting her to bring to the ER the second time.) Repeat ABGs reviewed pre-intubation/post intubation. On propofol/fentanyl for ICU sedation. Gram-negative bacteremia resulted blood cultures. Venous lactic acid 4.8. Interval chest imaging pending. Patient remains high risk mortality. ID and nephrology on board. 09/02-patient has a rough night. Currently on mechanical ventilation. Plateau pressure 23. Requiring 60% FiO2. Intermittent agitation requiring propof ol/fentanyl/midazolam drip. Gram-negative raheem on blood cultures. On Levophed at 5 mics. Urine output stabilizing. DC IV fluids. Lactic acid normalized. White count down from 22,009.3 with 12% bands. Improved renal function down to 1.3 CSF total cells 2, Normal protein glucose with no evidence of meningitis. - Constitutional Vitals: Vital Signs Temp Pulse Resp BP Pulse Ox 100.7 F H 85 18 107/69 100 09/03/19 09:01 09/03/19 09:01 09/03/19 09:56 09/03/19 09:01 09/03/19 09:56 Period Temp Pulse Resp BP Sys/Benitez Pulse Ox Last 24 Hr 95.7 F-102.8 F 44-151 11-55 55-223/37-181 84-100 Intake and Output 09/02/19 09/03/19 09/03/19 21:59 05:59 13:59 Intake Total 639 1623 436 Output Total 990 720 280 Balance -351 903 156 Weight 205 lb 7 oz Intake & Output: Intake & Output 09/02/19 09/03/19 09/03/19 21:59 05:59 13:59 Intake Total 639 1623 436 Output Total 990 720 280 Balance -351 903 156 Weight 205 lb 7 oz Intake: IV 639 1623 436 Sodium Chloride 0.9% 500 ml @ 500 Wide Open IV BOLUS ONE Rx#: [id number] Zovirax 800 mg In Sodium 250 Chloride 0.9% 250 ml @ 125 mls/ hr IV Q12H [facility] Rx#:[id number] Lactated Ringers 1,000 ml @ 100 0 912 392 mls/hr IV .Q10H [facility] Rx#: [id number] Versed 50 mg In Sodium Chloride 12 0.9% 90 ml @ 0.02 MG/KG/HR 3. 727 mls/hr IV Q24H [facility] Rx#: [id number] Levophed 16 mg In Sodium 1 67 44 Chloride 0.9% 234 ml @ 10 MCG/ MIN 9.375 mls/hr IV Q24H [facility] Rx #:[id number] Zosyn 3.375 gm In Dextrose 5% 50 100 in Water 50 ml @ 100 mls/hr IV Q6H [facility] Rx#:[id number] Diprivan 1,000 mg In Premix 1 80 152 Bag @ 5 MCG/KG/MIN 2.98 mls/hr IV .Q24H [facility] Rx#:[id number] fentaNYL 2,500 MCG In Sodium 8 65 Chloride 0.9% 200 ml @ 25 MCG/ HR 2.5 mls/hr IV Q24H [facility] Rx#: [id number] Oral 0 Output: Gastric Drainage 90 150 NG/OG 90 150 Urine Catheter Amount 900 570 280 Other: Percent of Meal Consumed 0% Urine Appearance Cloudy Clear Clear Uretheral (Lowery) Cloudy Clear Urine Color Dark Yellow Bright Yellow Bright Yellow Uretheral (Lowery) Dark Yellow Bright Yellow Urine Odor Normal General appearance: moderate distress (Intermittently anxious and agitated) Exam: On mechanical ventilation OG tube Telemetry no events Lowery draining clear urine On restraints Medical - PN: Obj Da - Labs CBC & Chem 7: 09/03/19 04:15 09/03/19 04:15 Labs: Abnormal Lab Results 09/03/19 09/03/19 09/02/19 04:15 04:15 12:48 WBC Hgb Hct Gran % Lymph % (Auto) Gran # Lymph # (Auto) [place] # (Auto) Band Neutrophils % 12 H Lymphocytes % 13 L VBG Lactic Acid Chloride 109 H Carbon Dioxide 18 L 17 L Anion Gap 17.0 H BUN 23 H 25 H Creatinine 1.3 H 1.3 H Glucose 129 H 128 H Calcium 8.0 L 8.3 L Phosphorus 2.2 L GGT 51 H 59 H AST 47 H ALT Alkaline Phosphatase Lactate Dehydrogenase 313 H 354 H Total Protein 5.4 L Albumin 2.1 L 2.7 L Albumin/Globulin Ratio 0.6 L 0.8 L Triglycerides 363 H 304 H Urine Protein Urine Ketones Urine Occult Blood Ur Leukocyte Esterase Urine RBC Urine WBC Amorphous Crystals Hyaline Casts CSF RBC U Marijuana (THC) Screen 09/02/19 09/02/19 09/02/19 12:37 12:37 06:00 WBC Hgb Hct Gran % Lymph % (Auto) Gran # Lymph # (Auto) [place] # (Auto) Band Neutrophils % Lymphocytes % VBG Lactic Acid 4.8 H* Chloride Carbon Dioxide Anion Gap BUN Creatinine Glucose Calcium Phosphorus GGT AST ALT Alkaline Phosphatase Lactate Dehydrogenase Total Protein Albumin Albumin/Globulin Ratio Triglycerides Urine Protein Urine Ketones Urine Occult Blood Ur Leukocyte Esterase Urine RBC Urine WBC Amorphous Crystals Hyaline Casts CSF RBC 2 H 4 H U Marijuana (THC) Screen 09/01/19 09/01/19 09/01/19 21:25 21:25 20:32 WBC Hgb Hct Gran % Lymph % (Auto) Gran # Lymph # (Auto) [place] # (Auto) Band Neutrophils % Lymphocytes % VBG Lactic Acid 3.4 H Chloride Carbon Dioxide Anion Gap BUN Creatinine Glucose Calcium Phosphorus GGT AST ALT Alkaline Phosphatase Lactate Dehydrogenase Total Protein Albumin Albumin/Globulin Ratio Triglycerides Urine Protein 100 A Urine Ketones 5/tr A Urine Occult Blood >=1.0 A Ur Leukocyte Esterase 25 A Urine RBC 177 H Urine WBC 28 H Amorphous Crystals Few A Hyaline Casts 12 H CSF RBC U Marijuana (THC) Screen Suspect positive A 09/01/19 09/01/19 20:32 20:32 WBC 22.9 H Hgb 16.0 H Hct 46.0 H Gran % 87.3 H Lymph % (Auto) 5.5 L Gran # 19.97 H Lymph # (Auto) 1.26 L [place] # (Auto) 1.57 H Band Neutrophils % Lymphocytes % VBG Lactic Acid Chloride 95 L Carbon Dioxide 20 L Anion Gap 20.0 H BUN 34 H Creatinine 2.0 H Glucose 114 H Calcium Phosphorus GGT AST 46 H ALT 49 H Alkaline Phosphatase 137 H Lactate Dehydrogenase Total Protein Albumin Albumin/Globulin Ratio Triglycerides Urine Protein Urine Ketones Urine Occult Blood Ur Leukocyte Esterase Urine RBC Urine WBC Amorphous Crystals Hyaline Casts CSF RBC U Marijuana (THC) Screen Meds: Medications Acetaminophen (Tylenol) 650 mg PO Q4-6HP PRN; Protocol PRN Reason: Per Pain Protocol/Fever > 101 Albuterol Sulfate (Ventolin) 2 puff INH Q4-6HP PRN PRN Reason: Wheezing Baclofen (Lioresal) 40 mg PO BID [facility] Last Admin: 09/03/19 07:52 Dose: Not Given Documented by: Bisacodyl (Dulcolax) 10 mg NM Q2-3DAYS PRN PRN Reason: Constipation Buspirone HCl (Buspar) 7.5 mg PO QDAY [facility] Last Admin: 09/03/19 07:51 Dose: Not Given Documented by: Chlorhexidine Gluconate (Peridex) 15 ml SWABMOUTH BID [facility] Last Admin: 09/03/19 08:21 Dose: 15 ml Documented by: Cyanocobalamin (Vitamin B-12) 1,000 mcg PO BID [facility] Stop: 09/06/19 21:01 Last Admin: 09/03/19 07:52 Dose: Not Given Documented by: Dextrose (Dextrose 50%) 0 ml IV UD PRN PRN Reason: Hypoglycemia Diagnostic Test (Pha) (Accu-Chek) 1 each FS ACHS [facility] Last Admin: 09/03/19 06:57 Dose: 1 each Documented by: Docusate Sodium (Colace) 100 mg PO BID [facility] Last Admin: 09/03/19 07:51 Dose: Not Given Documented by: Folic Acid (Folic Acid) 1 mg PO DAILY [facility] Last Admin: 09/03/19 07:51 Dose: Not Given Documented by: Glucose (Insta-Glucose) 15 gm PO PRN PRN PRN Reason: Hypoglycemia Heparin Sodium (Porcine) (Heparin) 5,000 unit SQ Q12 [facility] Last Admin: 09/03/19 08:21 Dose: 5,000 unit Documented by: Lactated Ringer's (Lactated Ringers) 1,000 mls @ 100 mls/hr IV .Q10H [facility] Stop: 09/03/19 13:37 Last Infusion: 09/03/19 09:23 Dose: Infused Documented by: Acetaminophen (Ofirmev) 650 mg in 65 mls @ 130 mls/hr IV Q6HP PRN; Protocol PRN Reason: Per Pain Protocol/Fever > 101 Last Infusion: 09/03/19 01:00 Dose: Infused Documented by: Magnesium Sulfate (Magnesium Sulfate) 2 gm in 50 mls @ 50 mls/hr IV UD PRN PRN Reason: MG = or < 1.7 Potassium Chloride 40 meq/ (Dextrose) 520 mls @ 130 mls/hr IV UD PRN PRN Reason: K+ = or < 3.5 Norepinephrine Bitartrate 16 (mg/ Sodium Chloride) 250 mls @ 9.375 mls/hr IV Q24H [facility]; Protocol Last Titration: 09/03/19 06:00 Dose: 5 mcg/min, 4.688 mls/hr Documented by: Fentanyl 2,500 mcg/ Sodium (Chloride) 250 mls @ 2.5 mls/hr IV Q24H [facility]; Protocol Last Titration: 09/03/19 00:00 Dose: 100 mcg/hr, 10 mls/hr Documented by: Heparin Sodium/Sodium Chloride (Heparin/Ns) 500 mls @ 0 mls/hr IV .Q0M [facility]; Protocol Acyclovir Sodium 800 mg/ (Sodium Chloride) 250 mls @ 125 mls/hr IV Q12H [facility] Last Infusion: 09/03/19 01:10 Dose: Infused Documented by: Propofol 1,000 mg/ Premix 100 mls @ 2.98 mls/hr IV .Q24H [facility]; Protocol Last Admin: 09/03/19 04:38 Dose: 25 mcg/kg/min, 14.901 mls/hr Documented by: Piperacillin Sod/Tazobactam (Sod 3.375 gm/ Dextrose) 50 mls @ 100 mls/hr IV Q6H [facility]; Protocol Last Infusion: 09/03/19 05:58 Dose: Infused Documented by: Midazolam HCl 50 mg/ Sodium (Chloride) 100 mls @ 3.727 mls/hr IV Q24H [facility]; Protocol Last Titration: 09/03/19 05:30 Dose: 0.03 mg/kg/hr, 5.591 mls/hr Documented by: Insulin Human Lispro (Humalog) 0 unit SQ ACHS [facility]; Protocol Last Admin: 09/03/19 06:58 Dose: Not Given Documented by: Iron Carb/Multivit/Mcnairy/Folic Acid (Multivitamin W/Minerals) 1 tab PO DAILY [facility] Last Admin: 09/03/19 07:52 Dose: Not Given Documented by: Melatonin (Melatonin 3mg Tablet) 3 mg PO HSP PRN PRN Reason: Insomnia Olanzapine (Zyprexa) 5 mg PO BIDP PRN PRN Reason: Agitation Ondansetron HCl (Zofran Odt) 4 mg SL Q4-6HP PRN; Protocol PRN Reason: Nausea And Vomiting Ondansetron HCl (Zofran) 4 mg IV Q4-6HP PRN; Protocol PRN Reason: Nausea And Vomiting Polyethylene Glycol (Miralax) 17 gm PO DAILYP PRN PRN Reason: Constipation Potassium Chloride (Klor-Con) 40 meq PO DAILYP PRN PRN Reason: K+ < 3.5 Senna/Docusate Sodium (Senna Plus Tablet) 1 tab PO HS [facility] Last Admin: 09/02/19 20:22 Dose: Not Given Documented by: Sitagliptin Phosphate (Januvia) 50 mg PO DAILY [facility] Last Admin: 09/03/19 07:52 Dose: Not Given Documented by: Sodium Chloride (Saline Flush) 10 ml IV Q8 [facility] Last Admin: 09/03/19 05:29 Dose: 10 ml Documented by: Thiamine HCl (Vitamin B1) 100 mg PO DAILY [facility] Last Admin: 09/03/19 08:22 Dose: Not Given Documented by: Tiotropium [place] (Spiriva) 18 mcg INH DAILY [facility] Last Admin: 09/03/19 08:22 Dose: Not Given Documented by: Medical - PN: A/P - Time Spent With Patient Total time spent is greater than 50% in coordination of care (as documented) at patient's floor/unit and/or counseling patient: Greater than 35 minutes (Critical care time spent in excess of 70 minutes) (1) Severe sepsis Status: Acute Assessment and plan: * Acute hypoxic respiratory failure requiring 60% FiO2. Elevated plateau pres sure. ABG 7.41/103 on 60% FiO2. Start diuresis. * Mechanical ventilation for airway protection/hypoxic respiratory failure- continue management per protocol.-Sedation on propofol/fentanyl/midazolam * Acute change in mental status-no evidence of meningitis on CSF studies. Likely sepsis endorgan dysfunction. * Gram-negative bacteremia-identification pending. Repeat cultures ordered. Broad antibiotic coverage. * Severe sepsis secondary to bilateral pyelonephritis. White count downtrending now less than 10,000. Multiple endorgan dysfunction including acute change mental status/acute kidney injury/elevated. Start pressors if systolics downtrending * Bilateral pyonephritis-underlying immunocompromised state. Continue antibiotics * Acute renal failure with creatinine 2, creatinine improved to 1.3. Nephrology on board * Elevated LFTs with endorgan dysfunction * History immunocompromise state on Enbrel/ Etanercept for underlying inflammatory polyarthritis. * DM type II-continue basal panel insulin * Full code * Prophylaxis heparin Plan * Continue mechanical ventilation per protocol * Continue daily chest imaging/blood gas/SPO2/lactic acid trending * DC crystalloids and start diuresis * Continue broad antibiotic coverage, add vancomycin * Vasopressors to keep map at goal * Nephrology and ID consultations Current Visit: Yes Medical - PN: Qual - VTE Deep Vein Thrombosis/Pulmonary Embolism Present on Admission: No
[2019-09-03] MEDS ORDERED: VANCOMYCIN PER PHARMACY IV SCH (10:14)
[2019-09-03] MEDS: ACYCLOVIR SODIUM 800 MG in 0.9 % SODIUM CHLORIDE 250 ML IV SCH (10:19)
[2019-09-03] MEDS ORDERED: VANCOMYCIN 1,500 MG in 0.9 % SODIUM CHLORIDE 500 ML IV SCH (11:00)
--- NOTE | 2019-09-03 12:18 | Transfer Summary ---
Transfer Discharge Sum: Prov Patient information: Note initiated : 09/03/19 at 12:14 pm Service Date, if different from initiated Date: [] Patient: Sun Cohn 49 y/o F admitted on 09/02/19 for confusion. Chief Complaint: [] Date of admission: 09/02/19 07:04 Discharge Date: 09/03/19 Primary care physician: PCP No Consults: 09/02/19 Consult to Physician [CONS] Stat Comment: Consulting Provider: Rishi Wheeler Reason For Exam: Physician to Consult 09/02/19 07:44 Consult to Physician [CONS] Urgent Comment: Consulting Provider: Shirin Bonilla Reason For Exam: Physician to Consult 09/02/19 12:51 Consult to Physician [CONS] Urgent Comment: Consulting Provider: Gabe Marsh Reason For Exam: Physician to Consult Receiving physician/facility: Dr. Prakash Denis bilingual elementary school teacher at [facility] Transfer Discharge Sum: Diag - Discharge Diagnosis (1) Severe sepsis Status: Acute Transfer Discharge Sum: Med - Medications Active and Home Medications: Home Medications albuterol sulfate 90 mcg/actuation aerosol inhaler 90 mcg INHALATION Q4HP PRN 03/25/15 [History Confirmed 09/03/19] acetaminophen 325 mg tablet 325 mg PO ONCE PRN tab 04/21/15 [History Confirmed 08/31/19] ibuprofen 200 mg capsule 200 mg PO QDAY PRN cap 04/21/15 [History Confirmed 08/31/19] buspirone 7.5 mg tablet 7.5 mg PO QDAY tab 12/31/15 [History Confirmed 09/03/19] Albuterol Sulfate [Ventolin] 2 puff INH Q4-6HP PRN #1 inhaler 09/14/16 [Rx Confirmed 09/01/19] cyclobenzaprine 5 mg tablet See Rx Instructions .ROUTE .COMPLEX #120 tablet 05/17/18 [Rx Confirmed 09/01/19] metformin 500 mg tablet 500 mg PO BID 04/11/19 [History Confirmed 09/02/19] baclofen 20 mg tablet 40 mg PO BID #120 tab 07/22/19 [Rx Confirmed 09/02/19] cephalexin 500 mg capsule 1,000 mg PO BID #14 cap 08/31/19 [Rx Confirmed 09/01/19] ondansetron 4 mg disintegrating tablet 4 mg PO TID-QID PRN #30 tab 08/31/19 [Rx Confirmed 09/01/19] Enbrel 50 mg SQ WEEKLY 09/01/19 [History Confirmed 09/03/19] Acyclovir [Zovirax] 800 mg PO DAILY 09/02/19 [History Confirmed 09/02/19] Cephalexin [Keflex] 250 mg PO BID 09/02/19 [History Confirmed 09/02/19] Lisinopril [Zestril] 1 tab PO DAILY 09/02/19 [History Confirmed 09/02/19] Meloxicam [Mobic] 7.5 mg PO BID PRN 09/02/19 [History Confirmed 09/02/19] Pravastatin [Pravachol] 1 tab PO QHS 09/02/19 [History Confirmed 09/02/19] Etanercept [Enbrel] 50 mg SQ WEEKLY 09/03/19 [History] Active Medications Acetaminophen (Tylenol) 650 mg PO Q4-6HP PRN; Protocol PRN Reason: Per Pain Protocol/Fever > 101 Albuterol Sulfate (Ventolin) 2 puff INH Q4-6HP PRN PRN Reason: Wheezing Baclofen (Lioresal) 40 mg PO BID [facility] Last Admin: 09/03/19 07:52 Dose: Not Given Documented by: Bisacodyl (Dulcolax) 10 mg [place] Q2-3DAYS PRN PRN Reason: Constipation Buspirone HCl (Buspar) 7.5 mg PO QDAY [facility] Last Admin: 09/03/19 07:51 Dose: Not Given Documented by: Chlorhexidine Gluconate (Peridex) 15 ml SWABMOUTH BID [facility] Last Admin: 09/03/19 08:21 Dose: 15 ml Documented by: Cyanocobalamin (Vitamin B-12) 1,000 mcg PO BID [facility] Stop: 09/06/19 21:01 Last Admin: 09/03/19 07:52 Dose: Not Given Documented by: Dextrose (Dextrose 50%) 0 ml IV UD PRN PRN Reason: Hypoglycemia Diagnostic Test (Pha) (Accu-Chek) 1 each FS ACHS [facility] Last Admin: 09/03/19 11:47 Dose: 1 each Documented by: Diagnostic Test (Pha) (Accu-Chek) 1 each FS Q6 [facility] Docusate Sodium (Colace) 100 mg PO BID [facility] Last Admin: 09/03/19 07:51 Dose: Not Given Documented by: Folic Acid (Folic Acid) 1 mg PO DAILY [facility] Last Admin: 09/03/19 07:51 Dose: Not Given Documented by: Glucose (Insta-Glucose) 15 gm PO PRN PRN PRN Reason: Hypoglycemia Heparin Sodium (Porcine) (Heparin) 5,000 unit SQ Q12 [facility] Last Admin: 09/03/19 08:21 Dose: 5,000 unit Documented by: Lactated Ringer's (Lactated Ringers) 1,000 mls @ 100 mls/hr IV .Q10H [facility] Stop: 09/03/19 13:37 Last Infusion: 09/03/19 09:23 Dose: Infused Documented by: Acetaminophen (Ofirmev) 650 mg in 65 mls @ 130 mls/hr IV Q6HP PRN; Protocol PRN Reason: Per Pain Protocol/Fever > 101 Last Infusion: 09/03/19 10:39 Dose: Infused Documented by: Magnesium Sulfate (Magnesium Sulfate) 2 gm in 50 mls @ 50 mls/hr IV UD PRN PRN Reason: MG = or < 1.7 Potassium Chloride 40 meq/ (Dextrose) 520 mls @ 130 mls/hr IV UD PRN PRN Reason: K+ = or < 3.5 Norepinephrine Bitartrate 16 (mg/ Sodium Chloride) 250 mls @ 9.375 mls/hr IV Q24H [facility]; Protocol Last Titration: 09/03/19 06:00 Dose: 5 mcg/min, 4.688 mls/hr Documented by: Fentanyl 2,500 mcg/ Sodium (Chloride) 250 mls @ 2.5 mls/hr IV Q24H [facility]; Protocol Last Titration: 09/03/19 00:00 Dose: 100 mcg/hr, 10 mls/hr Documented by: Heparin Sodium/Sodium Chloride (Heparin/Ns) 500 mls @ 0 mls/hr IV .Q0M [facility]; Protocol Acyclovir Sodium 800 mg/ (Sodium Chloride) 250 mls @ 125 mls/hr IV Q12H [facility] Last Admin: 09/03/19 10:19 Dose: 125 mls/hr Documented by: Propofol 1,000 mg/ Premix 100 mls @ 2.98 mls/hr IV .Q24H [facility]; Protocol Last Admin: 09/03/19 04:38 Dose: 25 mcg/kg/min, 14.901 mls/hr Documented by: Piperacillin Sod/Tazobactam (Sod 3.375 gm/ Dextrose) 50 mls @ 100 mls/hr IV Q6H [facility]; Protocol Last Infusion: 09/03/19 05:58 Dose: Infused Documented by: Midazolam HCl 50 mg/ Sodium (Chloride) 100 mls @ 3.727 mls/hr IV Q24H [facility]; Protocol Last Titration: 09/03/19 05:30 Dose: 0.03 mg/kg/hr, 5.591 mls/hr Documented by: Vancomycin HCl 1,500 mg/ (Sodium Chloride) 500 mls @ 333.3 mls/hr IV Q12H [facility] Last Admin: 09/03/19 11:05 Dose: 333.3 mls/hr Documented by: Insulin Human Lispro (Humalog) 0 unit SQ ACHS [facility]; Protocol Last Admin: 09/03/19 11:48 Dose: Not Given Documented by: Iron Carb/Multivit/[place]/Folic Acid (Multivitamin W/Minerals) 1 tab PO DAILY [facility] Last Admin: 09/03/19 07:52 Dose: Not Given Documented by: Melatonin (Melatonin 3mg Tablet) 3 mg PO HSP PRN PRN Reason: Insomnia Olanzapine (Zyprexa) 5 mg PO BIDP PRN PRN Reason: Agitation Ondansetron HCl (Zofran Odt) 4 mg SL Q4-6HP PRN; Protocol PRN Reason: Nausea And Vomiting Ondansetron HCl (Zofran) 4 mg IV Q4-6HP PRN; Protocol PRN Reason: Nausea And Vomiting Polyethylene Glycol (Miralax) 17 gm PO DAILYP PRN PRN Reason: Constipation Potassium Chloride (Klor-Con) 40 meq PO DAILYP PRN PRN Reason: K+ < 3.5 Senna/Docusate Sodium (Senna Plus Tablet) 1 tab PO HS [facility] Last Admin: 09/02/19 20:22 Dose: Not Given Documented by: Sitagliptin Phosphate (Januvia) 50 mg PO DAILY [facility] Last Admin: 09/03/19 07:52 Dose: Not Given Documented by: Sodium Chloride (Saline Flush) 10 ml IV Q8 [facility] Last Admin: 09/03/19 05:29 Dose: 10 ml Documented by: Thiamine HCl (Vitamin B1) 100 mg PO DAILY [facility] Last Admin: 09/03/19 08:22 Dose: Not Given Documented by: Tiotropium [place] (Spiriva) 18 mcg INH DAILY [facility] Last Admin: 09/03/19 08:22 Dose: Not Given Documented by: Vancomycin HCl (Vancomycin Per Pharmacy) 1 order IV UD [facility]; Protocol Transfer Discharge Sum: Hosp Hospital course: Transfer diagnosis * Acute hypoxic respiratory failure requiring 60% FiO2. Elevated plateau pressure. ABG 7.41/103 on 60% FiO2. Started on gentle diuresis. Need pulmonology consult for bronchoscopy evaluation and expert management of mechanical ventilation in light of deteriorating respiratory status * Mechanical ventilation for airway protection/hypoxic respiratory failure- continue management per protocol.-Sedation on propofol/fentanyl/midazolam. Plateau pressure 23/peak pressure 27. * Acute change in mental status with extreme agitation requiring propofol/fentanyl/midazolam to control agitation and maintain ICU sedation-no evidence of meningitis on CSF studies. Likely sepsis endorgan dysfunction. * E. coli bacteremia-surveillance cultures pending. On broad antibiotic coverage * Septic shock secondary to bilateral pyelonephritis. On vasopressors. White count down from 22,000->9000 * Bilateral pyonephritis-underlying immunocompromised state. Continue antibiotics * Acute renal failure with creatinine 2, creatinine improved to 1.3. Nephrology on board * Elevated LFTs with endorgan dysfunction * History immunocompromise state on Enbrel/ Etanercept for underlying inflammatory polyarthritis. * DM type II-continue basal/SSI. * Nutrition on tube feeds Brief hospital course Ms. 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 She was brought into the ER by her family after she was noted to be increasingly confused and violent along with fever and lower abdominal/back pain. Symptoms started roughly day and a half prior to presentation and has worsened concerning family. Initial work-up in the ER was consistent with severe sepsis with endorgan dysfunction including her acute renal failure/white count 23,000 with bandemia/elevated lactate/tachycardia, tachypnea and fever. Patient was promptly started antibiotics after cultures were drawn. COVID-19 test was performed. Due to patient's extremely anxious and agitated state she was administered 10 mg Haldol. Hospitalist service was consulted At the time of evaluation no family members are present. Patient is under the effect of antipsychotic unable to provide any history. GCS 6. Most of the history is obtained from review of medical records and from ER physician. Patient remains tachycardic tachypneic and requiring 2 L oxygen. Lowery started draining clear urine. Addendum Shortly after admission patient became extremely encephalopathic with fever at 104. High risk airway compromise and subsequently patient was intubated. Initiated on mechanical ventilation per protocol. Central line access secured. Lumbar puncture ordered. ID consulted and recommends acyclovir. Case discussed with patient's HOME on phone. Consented and agreeable to all procedures involved including life-saving measures/ventilation/central line/lumbar puncture. (He was able to provide a detailed history. they have been trying to maintain social distancing have been in a camper for 6 weeks until 8 days ago they returned home. Patient was in her baseline state of health until roughly 3 days prior to presentation started experiencing severe nausea followed by vomiting. Symptoms associated with fever, shaking chills and sweats along with lower back and flank pain. With worsening symptoms she presented to the [facility] care where she was started on antibiotic and antiemetics. She was discharged with outpatient antibiotics. Patient however was unable to take antibiotics until yesterday. She only had 1 dose of antibiotic however she became increasingly fatigued confused lethargic and not making sense prompting her to bring to the ER the second time.) Repeat ABGs reviewed pre-intubation/post intubation. On propofol/fentanyl for ICU sedation. Gram-negative bacteremia resulted blood cultures. Venous lactic acid 4.8. Interval chest imaging pending. Patient remains high risk mortality. ID and nephrology on board. 09/02-patient has a rough night. Currently on mechanical ventilation. Plateau pressure 23. Requiring 60% FiO2. Intermittent agitation requiring propofol/fentanyl/midazolam drip. Gram-negative raheem on blood cultures. On Levophed at 5 mics. Urine output stabilizing. DC IV fluids. Lactic acid normalized. White count down from 22,009.3 with 12% bands. Improved renal function down to 1.3 CSF total cells 2, Normal protein glucose with no evidence of meningitis. Addendum Worsening respiratory status now requiring for 60% FiO2. E. coli bacteremia. Bilateral infiltrates on chest imaging. Concerns raised by nursing staff about persistent agitation despite fentanyl/midazolam/propofol for sedation. Nursing staff not trained for rocuronium. Also need for bronchoscopy evaluation in light of increasing secretions/worsening respiratory failure. I discussed patient's deteriorating status with patient's COY on phone who was agreeable to to transfer patient to tertiary center for expert management of respiratory failure. Subsequently case was discussed with [facility] bilingual elementary school teacher Dr. Prakash Denis. I really appreciate Dr. Boswell's help in accepting this patient for further management. Patient will be airlifted to [facility]. - Time Spent with Patient Total time spent providing and/or coordinating transfer services: Greater than 30 minutes Transfer Discharge Sum: Exam - Constitutional Vitals: Vital Signs Temp Pulse Resp Resp Resp BP Pulse Ox 09/03/19 11:16 101.1 F H 88 23 H 113/76 93 09/03/19 11:01 101.3 F H 95 H 21 118/93 94 09/03/19 11:00 101.0 F H 91 H 11 L 96 09/03/19 10:47 96.0 F L 89 0 L 95 09/03/19 10:46 99.6 F H 90 0 L 110/73 96 09/03/19 10:31 91 H 23 H 114/87 94 09/03/19 10:16 100.1 F H 94 H 19 121/79 92 09/03/19 10:09 101.6 F H 09/03/19 10:01 140 H 32 H 140/86 89 L 09/03/19 10:00 108 H 32 H 89 L 09/03/19 09:56 18 33 H 95 09/03/19 09:46 101.6 F H 126 H 34 H 125/100 87 L 09/03/19 09:16 100.6 F H 85 23 H 105/70 95 09/03/19 09:02 100.7 F H 88 22 95 09/03/19 09:01 100.7 F H 85 24 H 107/69 95 09/03/19 09:00 100.6 F H 87 23 H 94 09/03/19 08:47 100.4 F H 84 21 95 09/03/19 08:46 100.4 F H 84 22 106/69 95 09/03/19 08:31 100.6 F H 85 22 105/70 94 09/03/19 08:16 98.4 F 83 19 106/72 94 05/19/20 08:01 100.4 F H 83 21 108/70 94 05/19/20 08:00 100.2 F H 84 20 93 05/19/20 07:46 99.6 F H 83 23 H 103/69 94 05//20 07:31 97.7 F 83 21 107/71 95 05//20 07:16 97.5 F 83 21 107/70 94 05/19/20 07:09 14 05 07:02 98.9 F 87 21 95 0520 07:01 99.1 F H 87 21 110/69 96 05/20 07:00 99.2 F H 88 24 H 95 05//20 06:46 87 31 H 107/70 96 0520 06:31 90 110/74 95 0520 06:16 99 H 20 109/76 96 0520 06:02 90 21 96 05/20 06:01 100.5 F H 90 11 L 136/90 96 05 05:46 95 H 132/91 95 0520 05:31 100.5 F H 88 136/90 96 0520 05:16 100.4 F H 88 136/90 96 05//20 05:01 100.4 F H 88 133/92 96 0520 05:00 22 05 04:46 100.3 F H 89 132/89 96 05/20 04:31 100.1 F H 91 H 138/91 96 05//20 04:16 100.0 F H 92 H 21 131/84 97 05/1920 04:01 100.1 F H 91 H 21 129/82 97 05/19/20 03:46 100.2 F H 90 22 133/84 97 05/19/20 03:31 100.2 F H 92 H 22 130/82 96 05/19/20 03:16 100.3 F H 91 H 24 H 127/77 97 05/19/20 03:01 100.3 F H 89 21 124/83 99 05/19/20 03:00 22 05/20 02:46 100.3 F H 91 H 20 127/82 99 05/19/20 02:31 100.2 F H 91 H 20 127/87 98 05/19/20 02:16 100.2 F H 93 H 23 H 132/89 98 /19/20 02:01 98.7 F 106 H 28 H 133/85 96 20 02:00 23 H 99 //20 01:31 98.5 F 96 H 25 H 117/73 97 /20 01:16 100.8 F H 99 H 25 H 92/62 96 09/03/19 01:15 98.0 F 09/03/19 01:09 100.7 F H 101 H 26 H 95/55 96 20 01:01 100.9 F H 105 H 26 H 94/57 95 20 00:46 100.8 F H 112 H 29 H 97/62 94 09/03/19 00:39 100.6 F H 120 H 32 H 135/73 92 09/03/19 00:30 100.4 F H 05/18/20 23:46 100.7 F H 91 H 23 H 131/85 99 18/20 23:31 100.6 F H 88 23 H 122/79 99 05/18/20 23:16 100.4 F H 87 21 122/78 99 05/18/20 23:01 100.4 F H 88 21 122/81 99 05/18/20 22:51 20 05/18/20 22:46 100.3 F H 86 21 123/82 99 05/18/20 22:31 100.2 F H 86 22 121/83 99 05/18/20 22:16 100.1 F H 86 23 H 120/78 99 05/18/20 22:01 99.3 F H 85 21 123/87 98 05/18/20 21:46 99.2 F H 85 21 127/89 98 05/18/20 21:31 99.1 F H 84 21 131/91 97 05/18/20 21:16 98.8 F 87 23 H 135/91 96 05/18/20 21:01 98.4 F 94 H 27 H 137/91 95 05/18/20 20:46 96.4 F L 110 H 29 H 138/80 100 05/18/20 20:31 99.2 F H 88 21 106/78 99 05/18/20 20:19 22 05/18/20 20:16 99.2 F H 88 24 H 110/78 99 05/18/20 20:01 99.2 F H 88 23 H 115/76 99 05/18/20 20:00 99.2 F H 88 24 H 99 05/18/20 19:46 99.1 F H 88 21 112/75 99 05/18/20 19:31 99.0 F 89 25 H 112/77 99 05/18/20 19:17 99.0 F 89 23 H 99 05/18/20 19:16 99.0 F 89 24 H 112/76 99 05/18/20 19:01 98.8 F 89 24 H 112/75 99 05/18/20 18:51 98.9 F 89 26 H 111/78 99 05/18/20 18:46 98.9 F 88 24 H 114/78 99 05/18/20 18:41 98.8 F 88 23 H 113/79 98 05/18/20 18:36 98.9 F 89 28 H 111/79 99 05/18/20 18:31 98.9 F 89 25 H 112/76 99 05/18/20 18:26 98.9 F 88 24 H 114/76 99 05/18/20 18:21 98.8 F 88 21 111/78 99 05/18/20 18:16 98.8 F 88 24 H 115/80 99 05/18/20 18:11 98.9 F 87 23 H 114/80 99 05/18/20 18:06 98.7 F 87 22 118/83 99 05/18/20 18:01 98.6 F 86 26 H 119/83 99 05/18/20 18:00 98.8 F 85 24 H 98 05/18/20 17:56 98.1 F 86 28 H 89/60 98 05/18/20 17:51 98.8 F 87 26 H 119/82 98 05/18/20 17:46 98.7 F 86 22 117/83 98 05/18/20 17:41 98.6 F 84 23 H 108/80 97 05/18/20 17:36 98.4 F 87 20 110/72 97 05/18/20 17:31 98.4 F 85 24 H 113/81 98 05/18/20 17:26 98.1 F 83 25 H 104/80 97 05/18/20 17:21 98.3 F 82 24 H 87/63 97 05/18/20 17:17 98.3 F 83 18 88/64 97 05/18/20 17:11 98.2 F 88 30 H 104/51 97 05/18/20 17:02 97.8 F 90 25 H 78/68 94 05/18/20 17:01 97.9 F 21 77/54 05/18/20 17:00 97.8 F 24 H 1820 16:50 21 05/1820 16:31 96.7 F L 107 H 25 H 128/97 84 L 051820 16:29 32 H 90 05/18/20 16:28 96.2 F L 93 H 22 95/74 97 /18/20 16:24 97.1 F 95 H 27 H 95/65 95 /18/20 16:22 97.2 F 26 H 203/168 0518/20 16:18 98.1 F 98 H 20 223/163 100 0518/20 16:13 98.1 F 44 L 25 H 208/181 98 05/18/20 16:08 98.0 F 21 202/161 05/18/20 16:07 98.0 F 98 H 24 H 185/130 100 05/18/20 16:02 97.9 F 98 H 20 174/99 100 //20 16:00 98.8 F 97 H 21 99 /18/20 15:32 92 H 26 H 188/101 99 05/18/20 15:23 89 25 H 176/69 97 05/18/20 15:17 99.8 F H 90 25 H 96 05/18/20 15:16 90 28 H 131/114 96 05/18/20 15:15 88 26 H 95 05/18/20 15:11 90 31 H 115/84 96 05/18/20 15:06 104 H 18 132/104 90 05/18/20 15:02 92 H 20 167/125 97 05/18/20 14:56 103 H 29 H 163/136 96 05/18/20 14:53 96 H 29 H 126/84 95 05/18/20 14:46 104 H 28 H 134/78 93 05/18/20 14:41 103 H 25 H 96/65 93 05/18/20 14:36 105 H 29 H 90/64 92 09/02/19 14:31 107 H 28 H 90/66 93 09/02/19 14:27 32 H 89 L 18 14:26 108 H 29 H 90/69 92 18 14:21 113 H 28 H 96/68 92 18 14:16 96.3 F L 117 H 23 H 93/70 92 09/02/19 14:02 14 09/02/19 14:01 96.9 F L 123 H 22 93/66 93 09/02/19 14:00 97 09/02/19 13:46 96.5 F L 129 H 17 126/69 93 18 13:16 96.6 F L 133 H 31 H 116/73 94 09/02/19 13:01 95.7 F L 136 H 15 133/78 95 09/02/19 12:46 134 H 19 132/81 96 09/02/19 12:31 140 H 14 156/90 96 09/02/19 12:16 141 H 14 143/82 96 Pulse Ox Pulse Ox 09/03/19 11:16 09/03/19 11:01 09/03/19 11:00 09/03/19 10:47 09/03/19 10:46 09/03/19 10:31 09/03/19 10:16 09/03/19 10:09 09/03/19 10:01 09/03/19 10:00 09/03/19 09:56 100 94 09/03/19 09:46 09/03/19 09:16 09/03/19 09:02 09/03/19 09:01 09/03/19 09:00 09/03/19 08:47 09/03/19 08:46 09/03/19 08:31 09/03/19 08:16 09/03/19 08:01 09/03/19 08:00 09/03/19 07:46 09/03/19 07:31 09/03/19 07:16 09/03/19 07:09 97 09/03/19 07:02 09/03/19 07:01 09/03/19 07:00 09/03/19 06:46 09/03/19 06:31 09/03/19 06:16 09/03/19 06:02 09/03/19 06:01 09/03/19 05:46 05 05:31 09/03/19 05:16 09/03/19 05:01 09/03/19 05:00 95 09/03/19 04:46 09/03/19 04:31 09/03/19 04:16 09/03/19 04:01 09/03/19 03:46 09/03/19 03:31 09/03/19 03:16 09/03/19 03:01 09/03/19 03:00 97 09/03/19 02:46 09/03/19 02:31 09/03/19 02:16 09/03/19 02:01 09/03/19 02:00 09/03/19 01:31 09/03/19 01:16 09/03/19 01:15 09/03/19 01:09 09/03/19 01:01 09/03/19 00:46 09/03/19 00:39 09/03/19 00:30 0520 23:46 051820 23:31 051820 23:16 051820 23:01 1820 22:51 99 0518/20 22:46 051820 22:31 051820 22:16 0518/20 22:01 051820 21:46 0518/20 21:31 0518/20 21:16 0518/20 21:01 051820 20:46 0518/20 20:31 0518/20 20:19 99 0518/20 20:16 0518/20 20:01 0518/20 20:00 0518/20 19:46 0518/20 19:31 0518/20 19:17 0518/20 19:16 0518/20 19:01 0518/20 18:51 0518/20 18:46 0518/20 18:41 0518/20 18:36 0518/20 18:31 0518/20 18:26 0518/20 18:21 0518/20 18:16 0518/20 18:11 0518/20 18:06 09/02/19 18:01 09/02/19 18:00 09/02/19 17:56 09/02/19 17:51 09/02/19 17:46 20 17:41 0520 17:36 20 17:31 20 17:26 20 17:21 09/02/19 17:17 09/02/19 17:11 09/02/19 17:02 09/02/19 17:01 09/02/19 17:00 09/02/19 16:50 93 09/02/19 16:31 09/02/19 16:29 09/02/19 16:28 09/02/19 16:24 09/02/19 16:22 09/02/19 16:18 09/02/19 16:13 09/02/19 16:08 09/02/19 16:07 09/02/19 16:02 09/02/19 16:00 09/02/19 15:32 09/02/19 15:23 09/02/19 15:17 09/02/19 15:16 09/02/19 15:15 09/02/19 15:11 09/02/19 15:06 09/02/19 15:02 09/02/19 14:56 09/02/19 14:53 09/02/19 14:46 09/02/19 14:41 09/02/19 14:36 09/02/19 14:31 09/02/19 14:27 09/02/19 14:26 09/02/19 14:21 09/02/19 14:16 09/02/19 14:02 95 09/02/19 14:01 09/02/19 14:00 09/02/19 13:46 09/02/19 13:16 09/02/19 13:01 09/02/19 12:46 09/02/19 12:31 20 12:16 Intake and Output 09/02/19 05/ 05 21:59 05:59 13:59 Intake Total 312 1623 541 Output Total 588 765 4491 Balance -351 903 910 Intake: IV 639 1623 501 Sodium Chloride 0.9% 500 ml @ 500 Wide Open IV [facility] Rx#: [id number] Zovirax 800 mg In Sodium 250 Chloride 0.9% 250 ml @ 125 mls/ hr IV Q12H [facility] Rx#:[id number] Lactated Ringers 1,000 ml @ 100 0 912 392 mls/hr IV .Q10H [facility] Rx#: [id number] Versed 50 mg In Sodium Chloride 12 0.9% 90 ml @ 0.02 MG/KG/HR 3. 727 mls/hr IV Q24H [facility] Rx#: [id number] Levophed 16 mg In Sodium 1 67 44 Chloride 0.9% 234 ml @ 10 MCG/ MIN 9.375 mls/hr IV Q24H [facility] Rx #:[id number] Zosyn 3.375 gm In Dextrose 5% 50 100 in Water 50 ml @ 100 mls/hr IV Q6H [facility] Rx#:[id number] Diprivan 1,000 mg In Premix 1 80 152 Bag @ 5 MCG/KG/MIN 2.98 mls/hr IV .Q24H [facility] Rx#:[id number] fentaNYL 2,500 MCG In Sodium 8 65 Chloride 0.9% 200 ml @ 25 MCG/ HR 2.5 mls/hr IV Q24H [facility] Rx#: [id number] Oral 0 Other 40 Output: Gastric Drainage 90 150 NG/OG 90 150 Urine Catheter Amount 569 625 0601 Other: Percent of Meal Consumed 0% Urine Appearance Cloudy Clear Clear Uretheral ([place]y) Cloudy Clear Clear Urine Color Dark Yellow Bright Yellow Pale Uretheral ([place]y) Dark Yellow Bright Yellow Light Marie Urine Odor Normal Weight 205 lb 7 oz 205 lb 7 oz Patient Weight 09/04/19 05:59 Weight 205 lb 7 oz Transfer Discharge Sum: Data Procedures and tests throughout hospitalization: Transfer Discharge Sum: A/P - Problem Maintenance (1) Severe sepsis Status: Acute Quality Measure Queries - VTE Deep Vein Thrombosis/Pulmonary Embolism Present on Admission: No
[2019-09-03 13:23] LABS: Prealbumin 5.4 mg/dl (20-40)
[2019-09-03 13:32] LABS: ALT/SGPT 30 U/l (0-40); AST/SGOT 35 U/l (0-37); Albumin 2.2 gm/dL (3.2-5.2); Albumin/Globulin Ratio 0.7 (1.0-2.3); Alkaline Phosphatase 93 U/L (39-117); Bilirubin,Direct 0.3 mg/dL (0.0-0.3); Bilirubin,Total 0.5 mg/dL (0.0-1.0); Blood Urea Nitrogen 21 mg/dl (6-20); Calcium 8.4 mg/dl (8.6-10.4); Carbon Dioxide 21 mmol/L (22-30); Chloride 107 mmol/L (96-108); Globulin 3.2 gm/dL (2.2-3.7); Glomerular Filtration Rate 48; Glucose 104 mg/dL (70-105); Lactate Dehydrogenase 276 U/L (94-250); Uric Acid 4.5 mg/dL (2.5-8.0)
[2019-09-03 13:39] LABS: Phosphorous 1.8 mg/dL (2.7-4.5); Triglycerides 345 mg/dl (<150)
--- NOTE | 2019-09-03 13:56 | Infectious Disease Prog Note ---
Subjective Patient information: Note initiated : 09/03/19 at 1:40 pm Service Date, if different from initiated Date: [] Patient: Sun Cohn 49 y/o F admitted on 09/02/19 for confusion. Chief Complaint: [] Interval history: Pt continues to be intubated, needing higher FiO2. Febrile since admission with Tmax of 38.5C in last 24 hrs. No diarrhea. Has billious secretions per OG tube. No seizures. Objective Objective Narrative: intubated and sedated pupils sluggishly reactive chest has VBS, with decreased BS at bases, occasional crepts on auscultation anteriorly s1 s2 normal, no murmurs heard bs absent no edema Left IJ central line - Vital Signs Vital signs: Vital Signs Temp Pulse Resp Resp Resp BP Pulse Ox 09/03/19 13:01 38.1 C H 101 H 10 L 113/69 94 09/03/19 13:00 38.1 C H 99 H 11 L 93 09/03/19 12:46 37.9 C H 103 H 22 118/83 93 09/03/19 12:32 38.1 C H 109 H 28 H 90 09/03/19 12:31 38.0 C H 108 H 28 H 123/77 89 L 09/03/19 12:16 36.8 C 134 H 37 H 159/106 91 09/03/19 12:01 38.1 C H 98 H 22 127/89 99 09/03/19 12:00 38.1 C H 112 H 21 98 09/03/19 11:46 38.2 C H 86 12 114/75 94 09/03/19 11:31 38.3 C H 86 22 111/75 94 09/03/19 11:17 38.4 C H 88 23 H 93 09/03/19 11:16 38.4 C H 88 23 H 113/76 93 09/03/19 11:01 38.5 C H 95 H 21 118/93 94 09/03/19 11:00 38.3 C H 91 H 11 L 96 09/03/19 10:54 38.1 C H 09/03/19 10:47 35.6 C L 89 0 L 95 09/03/19 10:46 37.6 C H 90 0 L 110/73 96 09/03/19 10:31 91 H 23 H 114/87 94 09/03/19 10:16 37.8 C H 94 H 19 121/79 92 09/03/19 10:09 38.7 C H 09/03/19 10:01 140 H 32 H 140/86 89 L 09/03/19 10:00 108 H 32 H 89 L 09/03/19 09:56 18 33 H 95 09/03/19 09:46 38.7 C H 126 H 34 H 125/100 87 L 09/03/19 09:16 38.1 C H 85 23 H 105/70 95 09/03/19 09:02 38.2 C H 88 22 95 09/03/19 09:01 38.2 C H 85 24 H 107/69 95 09/03/19 09:00 38.1 C H 87 23 H 94 09/03/19 08:47 38.0 C H 84 21 95 09/03/19 08:46 38.0 C H 84 22 106/69 95 09/03/19 08:31 38.1 C H 85 22 105/70 94 09/03/19 08:16 36.9 C 83 19 106/72 94 09/03/19 08:01 38.0 C H 83 21 108/70 94 09/03/19 08:00 37.9 C H 84 20 93 09/03/19 07:46 37.6 C H 83 23 H 103/69 94 09/03/19 07:31 36.5 C 83 21 107/71 95 09/03/19 07:16 36.4 C 83 21 107/70 94 09/03/19 07:09 14 09/03/19 07:02 37.2 C 87 21 95 09/03/19 07:01 37.3 C H 87 21 110/69 96 09/03/19 07:00 37.3 C H 88 24 H 95 09/03/19 06:46 87 31 H 107/70 96 09/03/19 06:31 90 110/74 95 09/03/19 06:16 99 H 20 109/76 96 09/03/19 06:02 90 21 96 09/03/19 06:01 38.1 C H 90 11 L 136/90 96 09/03/19 05:46 95 H 132/91 95 09/03/19 05:31 38.1 C H 88 136/90 96 09/03/19 05:16 38.0 C H 88 136/90 96 09/03/19 05:01 38.0 C H 88 133/92 96 09/03/19 05:00 22 09/03/19 04:46 37.9 C H 89 132/89 96 09/03/19 04:31 37.8 C H 91 H 138/91 96 09/03/19 04:16 37.8 C H 92 H 21 131/84 97 09/03/19 04:01 37.8 C H 91 H 21 129/82 97 09/03/19 03:46 37.9 C H 90 22 133/84 97 09/03/19 03:31 37.9 C H 92 H 22 130/82 96 09/03/19 03:16 37.9 C H 91 H 24 H 127/77 97 09/03/19 03:01 37.9 C H 89 21 124/83 99 09/03/19 03:00 22 09/03/19 02:46 37.9 C H 91 H 20 127/82 99 09/03/19 02:31 37.9 C H 91 H 20 127/87 98 09/03/19 02:16 37.9 C H 93 H 23 H 132/89 98 09/03/19 02:01 37.1 C 106 H 28 H 133/85 96 09/03/19 02:00 23 H 99 09/03/19 01:31 36.9 C 96 H 25 H 117/73 97 09/03/19 01:16 38.2 C H 99 H 25 H 92/62 96 09/03/19 01:15 36.7 C 09/03/19 01:09 38.2 C H 101 H 26 H 95/55 96 09/03/19 01:01 38.3 C H 105 H 26 H 94/57 95 09/03/19 00:46 38.2 C H 112 H 29 H 97/62 94 09/03/19 00:39 38.1 C H 120 H 32 H 135/73 92 09/03/19 00:30 38.0 C H 09/02/19 23:46 38.2 C H 91 H 23 H 131/85 99 09/02/19 23:31 38.1 C H 88 23 H 122/79 99 05/18/20 23:16 38.0 C H 87 21 122/78 99 09/02/19 23:01 38.0 C H 88 21 122/81 99 09/02/19 22:51 20 09/02/19 22:46 37.9 C H 86 21 123/82 99 09/02/19 22:31 37.9 C H 86 22 121/83 99 09/02/19 22:16 37.8 C H 86 23 H 120/78 99 09/02/19 22:01 37.4 C H 85 21 123/87 98 09/02/19 21:46 37.3 C H 85 21 127/89 98 09/02/19 21:31 37.3 C H 84 21 131/91 97 09/02/19 21:16 37.1 C 87 23 H 135/91 96 09/02/19 21:01 36.9 C 94 H 27 H 137/91 95 09/02/19 20:46 35.8 C L 110 H 29 H 138/80 100 09/02/19 20:31 37.3 C H 88 21 106/78 99 09/02/19 20:19 22 09/02/19 20:16 37.3 C H 88 24 H 110/78 99 09/02/19 20:01 37.3 C H 88 23 H 115/76 99 09/02/19 20:00 37.3 C H 88 24 H 99 09/02/19 19:46 37.3 C H 88 21 112/75 99 09/02/19 19:31 37.2 C 89 25 H 112/77 99 09/02/19 19:17 37.2 C 89 23 H 99 09/02/19 19:16 37.2 C 89 24 H 112/76 99 09/02/19 19:01 37.1 C 89 24 H 112/75 99 09/02/19 18:51 37.2 C 89 26 H 111/78 99 09/02/19 18:46 37.2 C 88 24 H 114/78 99 09/02/19 18:41 37.1 C 88 23 H 113/79 98 09/02/19 18:36 37.2 C 89 28 H 111/79 99 09/02/19 18:31 37.2 C 89 25 H 112/76 99 09/02/19 18:26 37.2 C 88 24 H 114/76 99 09/02/19 18:21 37.1 C 88 21 111/78 99 09/02/19 18:16 37.1 C 88 24 H 115/80 99 09/02/19 18:11 37.2 C 87 23 H 114/80 99 09/02/19 18:06 37.1 C 87 22 118/83 99 09/02/19 18:01 37.0 C 86 26 H 119/83 99 09/02/19 18:00 37.1 C 85 24 H 98 09/02/19 17:56 36.7 C 86 28 H 89/60 98 09/02/19 17:51 37.1 C 87 26 H 119/82 98 09/02/19 17:46 37.1 C 86 22 117/83 98 09/02/19 17:41 37.0 C 84 23 H 108/80 97 09/02/19 17:36 36.9 C 87 20 110/72 97 09/02/19 17:31 36.9 C 85 24 H 113/81 98 09/02/19 17:26 36.7 C 83 25 H 104/80 97 09/02/19 17:21 36.8 C 82 24 H 87/63 97 09/02/19 17:17 36.8 C 83 18 88/64 97 09/02/19 17:11 36.8 C 88 30 H 104/51 97 09/02/19 17:02 36.6 C 90 25 H 78/68 94 09/02/19 17:01 36.6 C 21 77/54 09/02/19 17:00 36.6 C 24 H 09/02/19 16:50 21 09/02/19 16:31 35.9 C L 107 H 25 H 128/97 84 L 09/02/19 16:29 32 H 90 09/02/19 16:28 35.7 C L 93 H 22 95/74 97 09/02/19 16:24 36.2 C 95 H 27 H 95/65 95 09/02/19 16:22 36.2 C 26 H 203/168 09/02/19 16:18 36.7 C 98 H 20 223/163 100 09/02/19 16:13 36.7 C 44 L 25 H 208/181 98 09/02/19 16:08 36.7 C 21 202/161 05/18/20 16:07 36.7 C 98 H 24 H 185/130 100 09/02/19 16:02 36.6 C 98 H 20 174/99 100 09/02/19 16:00 37.1 C 97 H 21 99 09/02/19 15:32 92 H 26 H 188/101 99 09/02/19 15:23 89 25 H 176/69 97 09/02/19 15:17 37.7 C H 90 25 H 96 09/02/19 15:16 90 28 H 131/114 96 09/02/19 15:15 88 26 H 95 09/02/19 15:11 90 31 H 115/84 96 09/02/19 15:06 104 H 18 132/104 90 09/02/19 15:02 92 H 20 167/125 97 09/02/19 14:56 103 H 29 H 163/136 96 09/02/19 14:53 96 H 29 H 126/84 95 09/02/19 14:46 104 H 28 H 134/78 93 09/02/19 14:41 103 H 25 H 96/65 93 09/02/19 14:36 105 H 29 H 90/64 92 09/02/19 14:31 107 H 28 H 90/66 93 09/02/19 14:27 32 H 89 L 09/02/19 14:26 108 H 29 H 90/69 92 09/02/19 14:21 113 H 28 H 96/68 92 09/02/19 14:16 35.7 C L 117 H 23 H 93/70 92 09/02/19 14:02 14 09/02/19 14:01 36.1 C L 123 H 22 93/66 93 18/ 14:00 97 09/02/19 13:46 35.8 C L 129 H 17 126/69 93 Pulse Ox Pulse Ox 09/03/19 13:01 09/03/19 13:00 09/03/19 12:46 09/03/19 12:32 09/03/19 12:31 09/03/19 12:16 09/03/19 12:01 09/03/19 12:00 09/03/19 11:46 09/03/19 11:31 09/03/19 11:17 09/03/19 11:16 09/03/19 11:01 09/03/19 11:00 09/03/19 10:54 09/03/19 10:47 09/03/19 10:46 09/03/19 10:31 09/03/19 10:16 09/03/19 10:09 09/03/19 10:01 09/03/19 10:00 09/03/19 09:56 100 94 09/03/19 09:46 09/03/19 09:16 09/03/19 09:02 09/03/19 09:01 09/03/19 09:00 09/03/19 08:47 09/03/19 08:46 09/03/19 08:31 09/03/19 08:16 09/03/19 08:01 09/03/19 08:00 09/03/19 07:46 09/03/19 07:31 09/03/19 07:16 09/03/19 07:09 97 09/03/19 07:02 09/03/19 07:01 09/03/19 07:00 09/03/19 06:46 09/03/19 06:31 09/03/19 06:16 09/03/19 06:02 09/03/19 06:01 09/03/19 05:46 09/03/19 05:31 09/03/19 05:16 09/03/19 05:01 09/03/19 05:00 95 09/03/19 04:46 09/03/19 04:31 09/03/19 04:16 09/03/19 04:01 09/03/19 03:46 09/03/19 03:31 09/03/19 03:16 09/03/19 03:01 09/03/19 03:00 97 09/03/19 02:46 09/03/19 02:31 09/03/19 02:16 09/03/19 02:01 09/03/19 02:00 09/03/19 01:31 09/03/19 01:16 09/03/19 01:15 09/03/19 01:09 09/03/19 01:01 09/03/19 00:46 09/03/19 00:39 09/03/19 00:30 09/02/19 23:46 05/18/20 23:31 05/18/20 23:16 0518/20 23:01 0518/20 22:51 99 0518/20 22:46 0518/20 22:31 0518/20 22:16 0518/20 22:01 0518/20 21:46 0518/20 21:31 0518/20 21:16 0518/20 21:01 0518/20 20:46 0518/20 20:31 0518/20 20:19 99 0518/20 20:16 0518/20 20:01 051820 20:00 0518/20 19:46 0518/20 19:31 0518/20 19:17 051820 19:16 051820 19:01 051820 18:51 051820 18:46 0518/20 18:41 051820 18:36 051820 18:31 051820 18:26 051820 18:21 051820 18:16 0520 18:11 051820 18:06 0520 18:01 0520 18:00 051820 17:56 0518/20 17:51 0518/20 17:46 0518/20 17:41 0518/20 17:36 0518/20 17:31 0518/20 17:26 0518/20 17:21 051820 17:17 0518/20 17:11 0518/20 17:02 051820 17:01 051820 17:00 051820 16:50 93 051820 16:31 0518/20 16:29 0518/20 16:28 0518/20 16:24 0518/20 16:22 0518/20 16:18 0518/20 16:13 0518/20 16:08 051820 16:07 051820 16:02 051820 16:00 051820 15:32 0518/20 15:23 0518/20 15:17 09/02/19 15:16 09/02/19 15:15 09/02/19 15:11 09/02/19 15:06 09/02/19 15:02 09/02/19 14:56 09/02/19 14:53 09/02/19 14:46 09/02/19 14:41 09/02/19 14:36 09/02/19 14:31 09/02/19 14:27 09/02/19 14:26 09/02/19 14:21 09/02/19 14:16 09/02/19 14:02 95 09/02/19 14:01 09/02/19 14:00 09/02/19 13:46 Intake and Output 09/02/19 09/03/19 09/03/19 21:59 05:59 13:59 Intake Total 639 1623 1419 Output Total 712 403 4119 Balance -351 903 -491 Intake: IV 639 1623 1379 Sodium Chloride 0.9% 500 ml @ 500 Wide Open IV B[facility] ONE Rx#: [id number] Zovirax 800 mg In Sodium 250 250 Chloride 0.9% 250 ml @ 125 mls/ hr IV Q12H [facility] Rx#:[id number] Lactated Ringers 1,000 ml @ 100 0 912 392 mls/hr IV .Q10H [facility] Rx#: [id number] Versed 50 mg In Sodium Chloride 12 0.9% 90 ml @ 0.02 MG/KG/HR 3. 727 mls/hr IV Q24H [facility] Rx#: [id number] Levophed 16 mg In Sodium 1 67 72 Chloride 0.9% 234 ml @ 10 MCG/ MIN 9.375 mls/hr IV Q24H [facility] Rx #:[id number] Zosyn 3.375 gm In Dextrose 5% 50 100 in Water 50 ml @ 100 mls/hr IV Q6H [facility] Rx#:[id number] Diprivan 1,000 mg In Premix 1 80 152 100 Bag @ 5 MCG/KG/MIN 2.98 mls/hr IV .Q24H [facility] Rx#:[id number] Vancomycin 1,500 mg In Sodium 500 Chloride 0.9% 500 ml @ 333.3 mls/hr IV Q12H [facility] Rx#: [id number] fentaNYL 2,500 MCG In Sodium 8 65 Chloride 0.9% 200 ml @ 25 MCG/ HR 2.5 mls/hr IV Q24H [facility] Rx#: [id number] Oral 0 Tube Feeding 0 GI Tube Flush 0 Other 40 Output: Gastric Drainage 90 150 NG/OG 90 150 Urine Catheter Amount 163 264 5667 Other: Percent of Meal Consumed 0% Urine Appearance Cloudy Clear Clear Uretheral (Lowery) Cloudy Clear Clear Urine Color Dark Yellow Bright Yellow Pale Uretheral (Lowery) Dark Yellow Bright Yellow Light Marie Urine Odor Normal Weight 93.185 kg 93.185 kg Patient Weight 09/04/19 05:59 Weight 93.185 kg Intake & Output: Intake & Output 09/02/19 09/03/19 09/03/19 21:59 05:59 13:59 Intake Total 639 1623 1419 Output Total 299 479 0618 Balance -351 903 -491 Weight 93.185 kg 93.185 kg Intake: IV 639 1623 1379 Sodium Chloride 0.9% 500 ml @ 500 Wide Open IV BOLUS ONE Rx#: [id number] Zovirax 800 mg In Sodium 250 250 Chloride 0.9% 250 ml @ 125 mls/ hr IV Q12H [facility] Rx#:[id number] Lactated Ringers 1,000 ml @ 100 0 912 392 mls/hr IV .Q10H [facility] Rx#: [id number] Versed 50 mg In Sodium Chloride 12 0.9% 90 ml @ 0.02 MG/KG/HR 3. 727 mls/hr IV Q24H [facility] Rx#: [id number] Levophed 16 mg In Sodium 1 67 72 Chloride 0.9% 234 ml @ 10 MCG/ MIN 9.375 mls/hr IV Q24H [facility] Rx #:[id number] Zosyn 3.375 gm In Dextrose 5% 50 100 in Water 50 ml @ 100 mls/hr IV Q6H [facility] Rx#:[id number] Diprivan 1,000 mg In Premix 1 80 152 100 Bag @ 5 MCG/KG/MIN 2.98 mls/hr IV .Q24H [facility] Rx#:[id number] Vancomycin 1,500 mg In Sodium 500 Chloride 0.9% 500 ml @ 333.3 mls/hr IV Q12H [facility] Rx#: [id number] fentaNYL 2,500 MCG In Sodium 8 65 Chloride 0.9% 200 ml @ 25 MCG/ HR 2.5 mls/hr IV Q24H [facility] Rx#: [id number] Oral 0 Tube Feeding 0 GI Tube Flush 0 Other 40 Output: Gastric Drainage 90 150 NG/OG 90 150 Urine Catheter Amount 622 852 7575 Other: Percent of Meal Consumed 0% Urine Appearance Cloudy Clear Clear Uretheral (Lowery) Cloudy Clear Clear Urine Color Dark Yellow Bright Yellow Pale Uretheral (Lowery) Dark Yellow Bright Yellow Light Marie Urine Odor Normal - Lab 09/03/19 04:15 09/03/19 11:17 Most recent lab results Calcium 8.4 mg/dl (8.6-10.4) L 09/03/19 11:17 Phosphorus 1.8 mg/dL (2.7-4.5) L 09/03/19 11:17 Magnesium 2.0 mg/dL (1.6-2.5) 09/03/19 11:17 Microbiology 09/02/19 12:37 Cerebral Spinal Fluid - Cerebral Spinal Fluid Gram Stain - Final 09/02/19 12:37 Cerebral Spinal Fluid - Cerebral Spinal Fluid CSF Culture - Preliminary 09/01/19 22:00 Blood Blood Culture - Preliminary Escherichia coli 09/02/19 15:52 Sputum - Aspirate Gram Stain - Final 09/02/19 15:52 Sputum - Aspirate Sputum Culture - Preliminary 09/02/19 07:30 Nose - Both Right and Left MRSA (PCR) - Final 09/01/19 21:20 Blood Blood Culture - Preliminary Gram negative bacillus Medications Active Medications: Acetaminophen (Tylenol) 650 mg PO Q4-6HP PRN; Protocol PRN Reason: Per Pain Protocol/Fever > 101 Albuterol Sulfate (Ventolin) 2 puff INH Q4-6HP PRN PRN Reason: Wheezing Baclofen (Lioresal) 40 mg PO BID [facility] Last Admin: 09/03/19 07:52 Dose: Not Given Documented by: ORI Non-Admin Reason: NPO Admin: 09/02/19 20:22 Dose: Not Given Documented by: [email or web address] Non-Admin Reason: NPO Admin: 09/02/19 10:37 Dose: Not Given Documented by: ORI Non-Admin Reason: Clinical Judgement Bisacodyl (Dulcolax) 10 mg CA Q2-3DAYS PRN PRN Reason: Constipation Buspirone HCl (Buspar) 7.5 mg PO QDAY [facility] Last Admin: 09/03/19 07:51 Dose: Not Given Documented by: ORI Non-Admin Reason: NPO Admin: 09/02/19 10:37 Dose: Not Given Documented by: ORI Non-Admin Reason: Clinical Judgement Chlorhexidine Gluconate (Peridex) 15 ml SWABMOUTH BID [facility] Last Admin: 09/03/19 08:21 Dose: 15 ml Documented by: Admin: 09/02/19 20:20 Dose: 15 ml Documented by: JANET Cyanocobalamin (Vitamin B-12) 1,000 mcg PO BID [facility] Stop: 09/06/19 21:01 Last Admin: 09/03/19 07:52 Dose: Not Given Documented by: ORI Non-Admin Reason: NPO Admin: 09/02/19 20:22 Dose: Not Given Documented by: JANET Non-Admin Reason: NPO Admin: 09/02/19 10:37 Dose: Not Given Documented by: ORI Non-Cornel Reason: Clinical Judgement Dextrose (Dextrose 50%) 0 ml IV UD PRN PRN Reason: Hypoglycemia Diagnostic Test (Pha) (Accu-Chek) 1 each FS ACHS [facility] Last Admin: 09/03/19 11:47 Dose: 1 each Documented by: Admin: 09/03/19 06:57 Dose: 1 each Documented by: Admin: 09/03/19 05:06 Dose: 1 each Documented by: Admin: 09/03/19 00:00 Dose: 1 each Documented by: JANET Comments: d/t NPO status did Q6H check Admin: 09/02/19 17:00 Dose: 1 each Documented by: Admin: 09/02/19 14:07 Dose: 1 each Documented by: Admin: 09/02/19 08:05 Dose: 1 each Documented by: ORI Diagnostic Test (Pha) (Accu-Chek) 1 each FS Q6 [facility] Last Admin: 09/03/19 12:34 Dose: 1 each Documented by: ORI Docusate Sodium (Colace) 100 mg PO BID [facility] Last Admin: 09/03/19 07:51 Dose: Not Given Documented by: ORI Non-Admin Reason: NPO Admin: 09/02/19 20:22 Dose: Not Given Documented by: JANET Non-Admin Reason: NPO Admin: 09/02/19 10:37 Dose: Not Given Documented by: ORI Non-Admin Reason: Clinical Judgement Folic Acid (Folic Acid) 1 mg PO DAILY [facility] Last Admin: 09/03/19 07:51 Dose: Not Given Documented by: ORI Non-Admin Reason: NPO Admin: 09/02/19 10:37 Dose: Not Given Documented by: ORI Non-Admin Reason: Clinical Judgement Glucose (Insta-Glucose) 15 gm PO PRN PRN PRN Reason: Hypoglycemia Heparin Sodium (Porcine) (Heparin) 5,000 unit SQ Q12 [facility] Last Admin: 09/03/19 08:21 Dose: 5,000 unit Documented by: Admin: 09/02/19 20:21 Dose: 5,000 unit Documented by: Admin: 09/02/19 14:09 Dose: 5,000 unit Documented by: ORI Acetaminophen (Ofirmev) 650 mg in 65 mls @ 130 mls/hr IV Q6HP PRN; Protocol PRN Reason: Per Pain Protocol/Fever > 101 Last Infusion: 09/03/19 10:39 Dose: 0 mls/hr Documented by: Admin: 09/03/19 10:09 Dose: 130 mls/hr Documented by: Infusion: 09/03/19 01:00 Dose: 0 mls/hr Documented by: Admin: 09/03/19 00:30 Dose: 130 mls/hr Documented by: Infusion: 09/02/19 11:28 Dose: 0 mls/hr Documented by: Admin: 09/02/19 10:58 Dose: 130 mls/hr Documented by: [id number] Magnesium Sulfate (Magnesium Sulfate) 2 gm in 50 mls @ 50 mls/hr IV UD PRN PRN Reason: MG = or < 1.7 Potassium Chloride 40 meq/ (Dextrose) 520 mls @ 130 mls/hr IV UD PRN PRN Reason: K+ = or < 3.5 Norepinephrine Bitartrate 16 (mg/ Sodium Chloride) 250 mls @ 9.375 mls/hr IV Q24H [facility]; Protocol Last Titration: 09/03/19 12:00 Dose: 3 mcg/min, 2.813 mls/hr Documented by: Titration: 09/03/19 06:00 Dose: 5 mcg/min, 4.688 mls/hr Documented by: Titration: 09/03/19 01:20 Dose: 10 mcg/min, 9.375 mls/hr Documented by: Titration: 09/03/19 00:00 Dose: 5 mcg/min, 4.688 mls/hr Documented by: Titration: 09/02/19 17:30 Dose: 10 mcg/min, 9.375 mls/hr Documented by: Admin: 09/02/19 17:09 Dose: 4 mcg/min, 3.75 mls/hr Documented by: Admin: 09/02/19 13:43 Dose: Not Given Documented by: ORI Non-Admin Reason: Clinical Judgement Fentanyl 2,500 mcg/ Sodium (Chloride) 250 mls @ 2.5 mls/hr IV Q24H [facility]; Protocol Last Titration: 09/03/19 00:00 Dose: 100 mcg/hr, 10 mls/hr Documented by: Titration: 09/02/19 15:20 Dose: 75 mcg/hr, 7.5 mls/hr Documented by: Titration: 09/02/19 13:45 Dose: 50 mcg/hr, 5 mls/hr Documented by: Admin: 09/02/19 11:39 Dose: 25 mcg/hr, 2.5 mls/hr Documented by: [email or web address] Heparin Sodium/Sodium Chloride (Heparin/Ns) 500 mls @ 0 mls/hr IV .Q0M [facility]; Protocol Acyclovir Sodium 800 mg/ (Sodium Chloride) 250 mls @ 125 mls/hr IV Q12H [facility] Last Infusion: 09/03/19 12:19 Dose: 0 mls/hr Documented by: Admin: 09/03/19 10:19 Dose: 125 mls/hr Documented by: Infusion: 09/03/19 01:10 Dose: 0 mls/hr Documented by: Admin: 09/02/19 23:10 Dose: 125 mls/hr Documented by: [email or web address] Infusion: 09/02/19 13:39 Dose: 0 mls/hr Documented by: Admin: 09/02/19 11:39 Dose: 125 mls/hr Documented by: [id number] Propofol 1,000 mg/ Premix 100 mls @ 2.98 mls/hr IV .Q24H [facility]; Protocol Last Admin: 09/03/19 12:28 Dose: 25 mcg/kg/min, 14.901 mls/hr Documented by: Titration: 09/03/19 11:21 Dose: 0 mcg/kg/min, 0 mls/hr Documented by: Admin: 09/03/19 04:38 Dose: 25 mcg/kg/min, 14.901 mls/hr Documented by: [email or web address] Titration: 09/03/19 04:38 Dose: 25 mcg/kg/min, 14.901 mls/hr Documented by: [email or web address] Admin: 09/02/19 23:30 Dose: 25 mcg/kg/min, 14.901 mls/hr Documented by: [email or web address] Titration: 09/02/19 23:30 Dose: 25 mcg/kg/min, 14.901 mls/hr Documented by: [email or web address] Admin: 09/02/19 18:23 Dose: 25 mcg/kg/min, 14.901 mls/hr Documented by: Titration: 09/02/19 18:23 Dose: 25 mcg/kg/min, 14.901 mls/hr Documented by: Titration: 09/02/19 13:00 Dose: 25 mcg/kg/min, 14.901 mls/hr Documented by: Titration: 09/02/19 12:00 Dose: 20 mcg/kg/min, 11.92 mls/hr Documented by: Titration: 09/02/19 11:30 Dose: 15 mcg/kg/min, 8.94 mls/hr Documented by: Titration: 09/02/19 11:15 Dose: 10 mcg/kg/min, 5.96 mls/hr Documented by: Admin: 09/02/19 10:57 Dose: 5 mcg/kg/min, 2.98 mls/hr Documented by: [id number] Piperacillin Sod/Tazobactam (Sod 3.375 gm/ Dextrose) 50 mls @ 100 mls/hr IV Q6H [facility]; Protocol Last Admin: 09/03/19 12:46 Dose: 100 mls/hr Documented by: Infusion: 09/03/19 05:58 Dose: 0 mls/hr Documented by: Admin: 09/03/19 05:28 Dose: 100 mls/hr Documented by: Infusion: 09/03/19 00:30 Dose: 100 mls/hr Documented by: Admin: 09/03/19 00:00 Dose: 100 mls/hr Documented by: Infusion: 09/02/19 18:53 Dose: 0 mls/hr Documented by: Admin: 09/02/19 18:23 Dose: 100 mls/hr Documented by: ORI Midazolam HCl 50 mg/ Sodium (Chloride) 100 mls @ 3.727 mls/hr IV Q24H [facility]; Protocol Last Titration: 09/03/19 05:30 Dose: 0.03 mg/kg/hr, 5.591 mls/hr Documented by: Admin: 09/03/19 02:15 Dose: 0.02 mg/kg/hr, 3.727 mls/hr Documented by: JANET Comments: RASS +3 Vancomycin HCl 1,500 mg/ (Sodium Chloride) 500 mls @ 333.3 mls/hr IV Q12H [facility] Last Infusion: 09/03/19 12:53 Dose: 0 mls/hr Documented by: Admin: 09/03/19 11:05 Dose: 333.3 mls/hr Documented by: ORI Insulin Human Lispro (Humalog) 0 unit SQ ACHS [facility]; Protocol Last Admin: 09/03/19 11:48 Dose: Not Given Documented by: ALTHEA Non-Admin Reason: No Coverage Needed Admin: 09/03/19 06:58 Dose: Not Given Documented by: ORI Non-Admin Reason: No Coverage Needed Admin: 09/03/19 00:00 Dose: Not Given Documented by: JANET Non-Admin Reason: No Coverage Needed Admin: 09/02/19 18:01 Dose: Not Given Documented by: ORI Non-Admin Reason: No Coverage Needed Admin: 09/02/19 14:11 Dose: 1 unit Documented by: Admin: 09/02/19 08:05 Dose: Not Given Documented by: ORI Non-Admin Reason: No Coverage Needed Iron Carb/Multivit/[place]/Folic Acid (Multivitamin W/Minerals) 1 tab PO DAILY [facility] Last Admin: 09/03/19 07:52 Dose: Not Given Documented by: ORI Non-Admin Reason: NPO Admin: 09/02/19 10:37 Dose: Not Given Documented by: ORI Non-Admin Reason: Clinical Judgement Melatonin (Melatonin 3mg Tablet) 3 mg PO HSP PRN PRN Reason: Insomnia Olanzapine (Zyprexa) 5 mg PO BIDP PRN PRN Reason: Agitation Ondansetron HCl (Zofran Odt) 4 mg SL Q4-6HP PRN; Protocol PRN Reason: Nausea And Vomiting Ondansetron HCl (Zofran) 4 mg IV Q4-6HP PRN; Protocol PRN Reason: Nausea And Vomiting Polyethylene Glycol (Miralax) 17 gm PO DAILYP PRN PRN Reason: Constipation Potassium Chloride (Klor-Con) 40 meq PO DAILYP PRN PRN Reason: K+ < 3.5 Senna/Docusate Sodium (Senna Plus Tablet) 1 tab PO HS [facility] Last Admin: 09/02/19 20:22 Dose: Not Given Documented by: JANET Non-Admin Reason: NPO Sitagliptin Phosphate (Januvia) 50 mg PO DAILY [facility] Last Admin: 09/03/19 07:52 Dose: Not Given Documented by: ORI Non-Admin Reason: NPO Admin: 09/02/19 10:37 Dose: Not Given Documented by: ORI Non-Admin Reason: Clinical Judgement Sodium Chloride (Saline Flush) 10 ml IV Q8 [facility] Last Admin: 09/03/19 05:29 Dose: 10 ml Documented by: Admin: 09/02/19 20:22 Dose: 10 ml Documented by: Admin: 09/02/19 15:12 Dose: 10 ml Documented by: ORI Thiamine HCl (Vitamin B1) 100 mg PO DAILY [facility] Last Admin: 09/03/19 08:22 Dose: Not Given Documented by: ORI Non-Admin Reason: NPO Admin: 09/02/19 10:37 Dose: Not Given Documented by: ORI Non-Admin Reason: Clinical Judgement Tiotropium [place] (Spiriva) 18 mcg INH DAILY [facility] Last Admin: 09/03/19 08:22 Dose: Not Given Documented by: ORI Non-Admin Reason: Unable to complete procedure/test Admin: 09/02/19 10:37 Dose: Not Given Documented by: ORI Non-Admin Reason: Clinical Judgement Vancomycin HCl (Vancomycin Per Pharmacy) 1 order IV UD [facility]; Protocol Assessment and Plan - Narrative A/P Narrative: A: 1. E coli bacteremia with pyelonephritis complicated by septic shock: no resistant genes detected (CTX-M, KPC ) - / blood Cx +ve on 08/31 - source: urine as patient has pyelonephritis - given septic shock and tenous clinical status, would broaden antibiotic therapy for now 2. Acute resp failure: reg 60% supplemental O2, intubated - not present at admission as pt was sattiing 97% on RA. Developed in last day or so. - could be aspiration pneumonia, r/o COVID 19 ([facility] swab sent, results awaited) - CXR s/o moderate consolidated atlectesis with b/l small pleural effusions 3. Altered mental status: sec to sepsis. CT head neg for any SHANELL, hydrocephalus - LP s/o normal cell count, Glu, neg GS. Protein low. Encephalitis panel could not be sent because of low CSF volume. On empiric acyclovir. - Sepsis seems likely cause for encephalopathy, but given her immunosuppressed status other causes such as HSV, COVID 19 should be considered 4. Undifferentiated arthritis, on Enbrel per Rheumatology - serum quantiferon neg in 2017 - Hep B surface Ag, Hep B core Ab neg - besides being on biologics no other risk factors for PJP such as steroids, age >65, co-existing lung disease 5. SHANTELL: CR downtrending (2----> 1.3 today), CrCl 72/min per CG formula - sec to sepsis Recommendations: - Resume IV Vancomycin given pt is requiring vasopressors, and continues to be febrile - Continue IV Zosyn at 3.375 gm q6 hrs for now. day 2 - Repeat blood Cx today - Continue IV Acyclovir at 10 mg/kg q8 hrs with IV rehydration. day 2 - await COVID 19 test results - CSF cryptococcal antigen, CSF encephalitis panel results sent-out by [facility] at [facility]. HSV-1,2 PCR on CSF re-ordered and would be added on and sent out. - Agree with transfer to higher center given tenous clinical status, need for critical care Gabe Marsh MD Infectious diseases
[2019-09-03] MEDS: NOREPINEPHRINE BITARTRATE 16 MG in 0.9 % SODIUM CHLORIDE 234 ML IV SCH (14:53)
[2019-09-03] MEDS: fentaNYL 2,500 MCG in 0.9 % SODIUM CHLORIDE 200 ML IV SCH (14:53)
== END 2019-09-03 14:25 | disposition short-term general hospital (02) | DRG 871 ==
LOC: ED 20:08 → ICU 09-02 07:04
PROVIDERS: ADMIT Internal Medicine; ATTEND Internal Medicine